=== PATIENT | male | born 1970 | race Caucasian/White ===

== ENCOUNTER 2021-04-22 05:02 | Inpatient (IN) ==
[2021-04-22] MEDS ORDERED: Acetaminophen 325 MG TABLET PO PRN (07:58)
[2021-04-22] MEDS ORDERED: Perflutren Lipid Microsphere 1.3 ML in 0.9 % Sodium Chloride 8.7 ML IVP PRN (07:58)
[2021-04-22] MEDS ORDERED: Naloxone 0.4 MG/ML INJ IVP PRN (07:58)
[2021-04-22] MEDS ORDERED: Vancomycin (wt based) 1,000 MG VIAL IVPB SCH (08:00)
[2021-04-22] MEDS ORDERED: Albuterol 2.5 MG/3 ML NEBULIZER IH PRN (08:04)
[2021-04-22] MEDS ORDERED: Azithromycin 500 MG in 0.9 % Sodium Chloride 250 ML IVPB SCH (09:00)
[2021-04-22] MEDS: Cefepime HCl 2,000 MG in Water for inj. (sterile) 10 ML IVP SCH ×2 (09:22→16:20)
[2021-04-22 09:27] LABS: Hematocrit 46.2 % (37.5-50.1); Hemoglobin 14.8 g/dL (12.9-16.9); Mean Corpuscular Hemoglobin 25.9 pg (28.0-33.3); Mean Corpuscular Volume 80.8 fL (83.0-100.0); Mean Platelet Volume 9.7 fL (9.4-12.4); Platelet Count 348 K/mcL (140-400); Red Blood Count 5.72 M/mcL (4.19-5.50); Red Cell Distribution Width 17.3 % (11.5-14.5); White Blood Count 27.2 K/mcL (4.3-11.1)
[2021-04-22 09:33] LABS: INR 1.3; Prothrombin Time 14.7 Seconds (9.4-12.1)
[2021-04-22 09:39] LABS: Alanine Aminotransferase 98 Units/L (7-52); Albumin 3.3 g/dL (3.5-5.7); Albumin/Globulin Ratio 0.9 (1.1-2.2); Alkaline Phosphatase 152 Units/L (34-104); Aspartate Amino Transferase 80 Units/L (13-39); BUN/Creatinine Ratio 24 (6-26); Bilirubin,Direct 1.2 mg/dL (0.0-0.2); Bilirubin,Indirect 1.2 mg/dL (0.0-1.0); Bilirubin,Total 2.4 mg/dL (0.3-1.0); Blood Urea Nitrogen 35 mg/dL (6-20); Calcium 8.7 mg/dL (8.6-10.3); Carbon Dioxide 21 mEq/L (23-29); Chloride 100 mEq/L (98-107); Globulin 3.5 g/dL (2.4-3.5); Glucose 123 mg/dL (70-105); Magnesium 1.6 mg/dL (1.6-2.6); Osmolality,Calculated 287 (280-300); Phosphorous 4.2 mg/dL (2.7-4.5); Sodium 134 mEq/L (136-145); Total Protein 6.8 g/dL (6.4-8.9); Troponin I 0.25 ng/mL (< 0.04); eGFR For African Americans > 60 (> 60); eGFR For Non-African Americans 52 (> 60)
[2021-04-22 10:08] LABS: Lymphocytes # 0.5 K/mcL (0.6-4.6); Monocytes # 1.6 K/mcL (0.0-1.3); Neutrophils # 24.5 K/mcL (1.6-8.9); Platelet Estimate Normal (Normal)
[2021-04-22 10:10] LABS: Bilirubin,Urine Negative (Negative); Blood,Urine Negative (Negative); Clarity,Urine Clear (Clear); Color,Urine Light-Yellow (Yellow); Glucose,Urine (UA) Normal (Normal); Ketones,Urine Negative (Negative); Leukocyte Esterase,Urine Negative (Negative); Nitrite,Urine Negative (Negative); Protein,Urine Negative (Neg-Trace); Specific Gravity,Urine 1.019 (1.010-1.025); Urobilinogen,Urine Normal (Normal)
[2021-04-22 10:13] LABS: Creatinine,Urine 29 mg/dL; Sodium, Urine 58.8 mEq/L
[2021-04-22 10:16] LABS: Amphetamine Screen,Urine Positive ng/mL (Cutoff=1000); Barbiturate Screen,Urine Negative ng/mL (Cutoff=200); Benzodiazepines Screen,Urine Negative ng/mL (Cutoff=200); Cannabinoid Screen,Urine Negative ng/mL (Cutoff = 50); Cocaine Screen,Urine Negative ng/mL (Cutoff= 300); Opiate Screen,Urine Negative ng/mL (Cutoff=300); Phencyclidine Screen,Urine Negative ng/mL (Cutoff=25)
[2021-04-22] MEDS: Vancomycin 1,250 MG/262.5 ML IV.SOLN IVPB SCH ×2 (10:21→21:12)
[2021-04-22] MEDS: Ipratropium/Albuterol Neb 3 ML IH SCH ×3 (11:39→20:34)
[2021-04-22 14:08] LABS: Procalcitonin 5.58 ng/mL (0.00-0.15)
[2021-04-22 15:28] LABS: Folate 11.6 ng/mL (3.0-16.0)
[2021-04-23] MEDS: Ipratropium/Albuterol Neb 3 ML IH SCH ×2 (00:09→03:36)
[2021-04-23] MEDS: Cefepime HCl 2,000 MG in Water for inj. (sterile) 10 ML IVP SCH ×3 (01:25→17:41)
[2021-04-23] MEDS ORDERED: Azithromycin 500 MG in 0.9 % Sodium Chloride 250 ML IVPB SCH (04:00)
[2021-04-23 05:44] LABS: Basophils % 0.2 %; Hematocrit 44.3 % (37.5-50.1); Hemoglobin 13.7 g/dL (12.9-16.9); Immature Granulocytes % 0.9 % (0-4); Lymphocytes # 1.2 K/mcL (0.6-4.6); Lymphocytes % 5.1 %; Mean Corpuscular HGB Conc 30.9 g/dL (31.6-35.5); Mean Corpuscular Hemoglobin 24.8 pg (28.0-33.3); Mean Corpuscular Volume 80.1 fL (83.0-100.0); Mean Platelet Volume 9.9 fL (9.4-12.4); Monocytes # 2.3 K/mcL (0.0-1.3); Monocytes % 9.8 %; Neutrophils # 19.9 K/mcL (1.6-8.9); Platelet Count 359 K/mcL (140-400); Red Blood Count 5.53 M/mcL (4.19-5.50); Red Cell Distribution Width 16.8 % (11.5-14.5); White Blood Count 23.7 K/mcL (4.3-11.1)
[2021-04-23 05:58] LABS: Alanine Aminotransferase 73 Units/L (7-52); Albumin/Globulin Ratio 0.9 (1.1-2.2); Alkaline Phosphatase 141 Units/L (34-104); Aspartate Amino Transferase 42 Units/L (13-39); BUN/Creatinine Ratio 23 (6-26); Bilirubin,Direct 0.5 mg/dL (0.0-0.2); Bilirubin,Indirect 0.7 mg/dL (0.0-1.0); Bilirubin,Total 1.2 mg/dL (0.3-1.0); Blood Urea Nitrogen 34 mg/dL (6-20); Calcium 8.7 mg/dL (8.6-10.3); Carbon Dioxide 22 mEq/L (23-29); Chloride 102 mEq/L (98-107); Globulin 3.5 g/dL (2.4-3.5); Glucose 147 mg/dL (70-105); Magnesium 1.9 mg/dL (1.6-2.6); Osmolality,Calculated 286 (280-300); Phosphorous 2.7 mg/dL (2.7-4.5); Potassium 4.5 mEq/L (3.5-5.1); Sodium 133 mEq/L (136-145); Total Protein 6.5 g/dL (6.4-8.9); eGFR For African Americans > 60 (> 60); eGFR For Non-African Americans 51 (> 60)
[2021-04-23] MEDS ORDERED: Albumin 25% 25gram/100mL 25 GM/100 ML IV.SOLN IVPB ONE (06:16)
[2021-04-23] MEDS ORDERED: 0.9 % Sodium Chloride 500 ML IVC ONE (06:21)
[2021-04-23] MEDS ORDERED: *HR* Heparin 5,000 UNIT/ML VIAL IVP ONE ×3 (06:22→09:14)
[2021-04-23] MEDS ORDERED: *HR* Heparin 5,000 UNIT/ML VIAL IVP PRN ×5 (06:22→17:54)
[2021-04-23] MEDS ORDERED: 0.9 % Sodium Chloride 500 ML ONE (06:25)
[2021-04-23] MEDS ORDERED: Amiodarone Premix 360 MG/200 ML BAG IVC ONE ×2 (06:30→09:11)
[2021-04-23] MEDS ORDERED: Amiodarone Premix 150 MG/100 ML BAG IVPB ONE (06:30)
[2021-04-23] MEDS ORDERED: Heparin 25,000UNIT/250ML 1/2NS 25,000 UNIT/250 ML IV.SOLN IVC SCH (06:30)
[2021-04-23 06:47] LABS: Mean Corpuscular HGB Conc 31.8 g/dL (31.6-35.5); Mean Corpuscular Hemoglobin 25.7 pg (28.0-33.3); Mean Corpuscular Volume 80.9 fL (83.0-100.0); Mean Platelet Volume 10.1 fL (9.4-12.4); Platelet Count 346 K/mcL (140-400); Red Blood Count 5.44 M/mcL (4.19-5.50); Red Cell Distribution Width 17.1 % (11.5-14.5)
[2021-04-23 06:54] LABS: Heparin anti-factor XA UFH < 0.04 IU/mL (0.30-0.70)
[2021-04-23 06:55] LABS: INR 1.4
[2021-04-23] MEDS ORDERED: Acetaminophen 325 MG TABLET PO PRN (07:45)
[2021-04-23] MEDS ORDERED: Albuterol 2.5 MG/3 ML NEBULIZER IH PRN (07:45)
[2021-04-23] MEDS ORDERED: Naloxone 0.4 MG/ML INJ IVP PRN (07:45)
[2021-04-23] MEDS ORDERED: Ipratropium/Albuterol Neb 3 ML IH SCH (08:00)
[2021-04-23] MEDS ORDERED: Heparin 25,000 UNIT/250 ML 25,000 UNIT/250 ML IV.SOLN IVC SCH (09:15)
[2021-04-23] MEDS ORDERED: *HR* LORazepam 2 MG/ML VIAL IVP ONE (09:37)
[2021-04-23] MEDS ORDERED: Vancomycin 1,250 MG/262.5 ML IV.SOLN IVPB SCH (10:00)
[2021-04-23] MEDS: Ipratropium/Albuterol Neb 3 ML IH PRN (10:09)
[2021-04-23] MEDS ORDERED: Amiodarone Premix 360 MG/200 ML BAG IVC SCH ×2 (12:31→15:13)
[2021-04-23] MEDS: Aspirin 81 MG TAB.CHEW PO SCH (13:56)
[2021-04-23] MEDS: Furosemide 20 MG/2 ML VIAL IVP SCH ×2 (13:56→21:12)
[2021-04-23] MEDS: Metoprolol XL (24 HR) Succ 25 MG TAB.ER.24H PO SCH (17:41)
[2021-04-24 01:02] LABS: Basophils % 0.2 %; Hematocrit 51.1 % (37.5-50.1); Hemoglobin 15.3 g/dL (12.9-16.9); Immature Granulocytes % 5.4 % (0-4); Lymphocytes # 0.6 K/mcL (0.6-4.6); Lymphocytes % 2.7 %; Mean Corpuscular HGB Conc 29.9 g/dL (31.6-35.5); Mean Corpuscular Hemoglobin 25.9 pg (28.0-33.3); Mean Corpuscular Volume 86.6 fL (83.0-100.0); Mean Platelet Volume 10.4 fL (9.4-12.4); Monocytes % 9.2 %; Neutrophils # 17.7 K/mcL (1.6-8.9); Nucleated Red Blood Cells 0.1 /100 WBC (0); Platelet Count 402 K/mcL (140-400); Red Cell Distribution Width 18.2 % (11.5-14.5); Segmented Neutrophils % 82.5 %; White Blood Count 21.4 K/mcL (4.3-11.1)
[2021-04-24] MEDS: Cefepime HCl 2,000 MG in Water for inj. (sterile) 10 ML IVP SCH ×3 (01:09→20:16)
[2021-04-24] MEDS: Heparin 25,000 UNIT/250 ML 25,000 UNIT/250 ML IV.SOLN IVC SCH ×2 (01:10→19:02)
[2021-04-24] MEDS: Azithromycin 500 MG in 0.9 % Sodium Chloride 250 ML IVPB SCH (05:00)
[2021-04-24] MEDS: *HR* Heparin 5,000 UNIT/ML VIAL IVP PRN ×2 (05:06→13:09)
[2021-04-24 05:25] LABS: Albumin 3.5 g/dL (3.5-5.7); Albumin/Globulin Ratio 1.1 (1.1-2.2); Bilirubin,Direct 1.7 mg/dL (0.0-0.2); Bilirubin,Indirect 1.4 mg/dL (0.0-1.0); Bilirubin,Total 3.1 mg/dL (0.3-1.0); Calcium 9.8 mg/dL (8.6-10.3); Globulin 3.3 g/dL (2.4-3.5); Magnesium 2.2 mg/dL (1.6-2.6); Phosphorous 5.9 mg/dL (2.7-4.5); Potassium 5.2 mEq/L (3.5-5.1); Total Protein 6.8 g/dL (6.4-8.9)
[2021-04-24] MEDS ORDERED: *HR* Dextrose 50 % in Water (Vial) 50 ML VIAL ONE (05:30)
[2021-04-24] MEDS ORDERED: D5% in Water 1,000 ML IVC ONE (05:34)
[2021-04-24] MEDS ORDERED: *HR* Dextrose 50 % in Water (Syg) 50 ML SYRINGE IVP PRN (05:50)
[2021-04-24] MEDS ORDERED: D5% in Water 1,000 ML IVC PRN (05:50)
[2021-04-24] MEDS ORDERED: Dextrose Gel 15 GM/37.5 ML TUBE PO PRN ×2 (05:50)
[2021-04-24] MEDS ORDERED: lisinopriL 5 MG TABLET PO SCH (09:30)
[2021-04-24] MEDS ORDERED: Furosemide 20 MG/2 ML VIAL IVP SCH (11:45)
[2021-04-24 12:33] LABS: Alanine Aminotransferase 2178 Units/L (7-52); Albumin/Globulin Ratio 1.1 (1.1-2.2); Alkaline Phosphatase 173 Units/L (34-104); Aspartate Amino Transferase > 3000 Units/L (13-39); Bilirubin,Direct 1.6 mg/dL (0.0-0.2); Bilirubin,Indirect 1.1 mg/dL (0.0-1.0); Bilirubin,Total 2.7 mg/dL (0.3-1.0); Globulin 2.8 g/dL (2.4-3.5); Total Protein 5.8 g/dL (6.4-8.9)
[2021-04-24 12:38] LABS: Hepatitis B Surface Antigen Nonreactive (Nonreactive)
[2021-04-24] MEDS: Aspirin 81 MG TAB.CHEW PO SCH (12:50)
[2021-04-24] MEDS: Metoprolol XL (24 HR) Succ 25 MG TAB.ER.24H PO SCH (12:50)
[2021-04-24 13:08] LABS: Hepatitis A Antibody IgM Nonreactive (Nonreactive)
[2021-04-24 14:19] LABS: Hepatitis B Core IgM Nonreactive (Nonreactive)
[2021-04-24 14:23] LABS: Hepatitis C Virus Antibody Reactive (Nonreactive)
[2021-04-24] MEDS: Lactulose Oral Soln 20 GM/30 ML UDC PO SCH ×2 (14:30→20:16)
[2021-04-24] MEDS ORDERED: *HR* LORazepam 2 MG/ML VIAL IVP ONE (15:01)
[2021-04-24 17:29] LABS: Alanine Aminotransferase 2167 Units/L (7-52); Albumin 2.9 g/dL (3.5-5.7); Alkaline Phosphatase 164 Units/L (34-104); Aspartate Amino Transferase > 3000 Units/L (13-39); Bilirubin,Direct 1.4 mg/dL (0.0-0.2); Bilirubin,Indirect 0.9 mg/dL (0.0-1.0); Bilirubin,Total 2.3 mg/dL (0.3-1.0); Globulin 2.9 g/dL (2.4-3.5); Total Protein 5.8 g/dL (6.4-8.9)
[2021-04-24] MEDS: Furosemide 20 MG/2 ML VIAL IVP SCH (19:46)
[2021-04-25] MEDS ORDERED: Melatonin 3 MG TABLET PO ONE (00:17)
[2021-04-25] MEDS: Azithromycin 500 MG in 0.9 % Sodium Chloride 250 ML IVPB SCH (03:31)
[2021-04-25 03:54] LABS: Albumin 2.9 g/dL (3.5-5.7); Bilirubin,Direct 1.2 mg/dL (0.0-0.2); Bilirubin,Indirect 1.1 mg/dL (0.0-1.0); Bilirubin,Total 2.3 mg/dL (0.3-1.0); Calcium 8.3 mg/dL (8.6-10.3); Globulin 2.9 g/dL (2.4-3.5); Potassium 4.3 mEq/L (3.5-5.1); Total Protein 5.8 g/dL (6.4-8.9)
[2021-04-25] MEDS: *HR* Heparin 5,000 UNIT/ML VIAL IVP PRN ×2 (04:06→14:04)
[2021-04-25] MEDS: Ipratropium/Albuterol Neb 3 ML IH PRN (05:25)
[2021-04-25] MEDS ORDERED: Albumin 25% 25gram/100mL 25 GM/100 ML IV.SOLN IVPB ONE (05:42)
[2021-04-25 06:52] LABS: INR 2.4; Prothrombin Time 26.5 Seconds (9.4-12.1)
[2021-04-25] MEDS ORDERED: Vancomycin 1,500 MG/265 ML IV.SOLN IVPB SCH (07:00)
[2021-04-25 07:09] LABS: Basophils # 0.1 K/mcL (0.0-0.2); Basophils % 0.9 %; Eosinophils % 0.1 %; Hematocrit 39.8 % (37.5-50.1); Immature Granulocytes % 6.3 % (0-4); Lymphocytes % 8.1 %; Mean Corpuscular HGB Conc 32.4 g/dL (31.6-35.5); Mean Corpuscular Hemoglobin 25.2 pg (28.0-33.3); Mean Corpuscular Volume 77.9 fL (83.0-100.0); Mean Platelet Volume 10.4 fL (9.4-12.4); Monocytes # 1.2 K/mcL (0.0-1.3); Monocytes % 7.7 %; Neutrophils # 11.8 K/mcL (1.6-8.9); Nucleated Red Blood Cells 0.8 /100 WBC (0); Platelet Count 332 K/mcL (140-400); Red Blood Count 5.11 M/mcL (4.19-5.50); Red Cell Distribution Width 16.2 % (11.5-14.5); Segmented Neutrophils % 76.9 %; White Blood Count 15.4 K/mcL (4.3-11.1)
[2021-04-25 07:10] LABS: Hemoglobin 12.9 g/dL (12.9-16.9); Lymphocytes # 1.3 K/mcL (0.6-4.6)
[2021-04-25 07:17] LABS: Platelet Estimate Normal (Normal)
[2021-04-25 07:28] LABS: Amylase 37 Units/L (29-103); Lipase 50 Units/L (11-82)
[2021-04-25] MEDS ORDERED: Ondansetron 4 MG/2 ML VIAL IVP PRN ×2 (07:48→15:47)
[2021-04-25] MEDS ORDERED: Morphine Sulfate 2 MG/ML SYRINGE IVP ONE (09:15)
[2021-04-25] MEDS: Cefepime HCl 2,000 MG in Water for inj. (sterile) 10 ML IVP SCH ×2 (09:35→20:15)
[2021-04-25] MEDS: Norepinephrine 4 MG/254 ML IV.SOLN IVC SCH ×2 (09:38→19:50)
[2021-04-25] MEDS: Heparin 25,000 UNIT/250 ML 25,000 UNIT/250 ML IV.SOLN IVC SCH (10:54)
[2021-04-25] MEDS: Aspirin 81 MG TAB.CHEW PO SCH (12:14)
[2021-04-25] MEDS: Metoprolol XL (24 HR) Succ 25 MG TAB.ER.24H PO SCH (12:14)
[2021-04-25] MEDS: Lactulose Oral Soln 20 GM/30 ML UDC PO SCH ×2 (12:14→20:15)
[2021-04-25 12:51] LABS: Creatinine,Urine 57 mg/dL; Sodium, Urine < 10.0 mEq/L
[2021-04-25] MEDS: Bumetanide 12 MG in 0.9 % Sodium Chloride 48 ML IVC SCH (14:01)
[2021-04-25] MEDS ORDERED: Menthol 1 EACH LOZENGE PO PRN ×2 (14:48→15:47)
[2021-04-25] MEDS ORDERED: *HR* Heparin 5,000 UNIT/ML VIAL IVP PRN ×2 (15:47)
[2021-04-25] MEDS ORDERED: D5% in Water 1,000 ML IVC PRN (15:47)
[2021-04-25] MEDS ORDERED: *HR* Dextrose 50 % in Water (Syg) 50 ML SYRINGE IVP PRN (15:47)
[2021-04-25] MEDS ORDERED: Acetaminophen 325 MG TABLET PO PRN (15:47)
[2021-04-25] MEDS ORDERED: Albuterol 2.5 MG/3 ML NEBULIZER IH PRN (15:47)
[2021-04-25] MEDS ORDERED: Heparin 25,000 UNIT/250 ML 25,000 UNIT/250 ML IV.SOLN IVC SCH (15:47)
[2021-04-25] MEDS ORDERED: Dextrose Gel 15 GM/37.5 ML TUBE PO PRN ×2 (15:47)
[2021-04-25] MEDS ORDERED: Naloxone 0.4 MG/ML INJ IVP PRN (15:47)
[2021-04-25] MEDS ORDERED: Ipratropium/Albuterol Neb 3 ML IH PRN (15:47)
[2021-04-25 18:26] LABS: Complement C3 57 mg/dL (87-200)
[2021-04-25 18:42] LABS: ANCA IFA Titer <1:20 (<1:20)
[2021-04-26] MEDS: Azithromycin 500 MG in 0.9 % Sodium Chloride 250 ML IVPB SCH (03:12)
[2021-04-26 08:15] LABS: Hematocrit 43.2 % (37.5-50.1); Hemoglobin 13.8 g/dL (12.9-16.9); Mean Corpuscular HGB Conc 31.9 g/dL (31.6-35.5); Mean Corpuscular Volume 78.4 fL (83.0-100.0); Mean Platelet Volume 10.4 fL (9.4-12.4); Platelet Count 291 K/mcL (140-400); Red Blood Count 5.51 M/mcL (4.19-5.50); Red Cell Distribution Width 17.4 % (11.5-14.5); White Blood Count 15.8 K/mcL (4.3-11.1)
[2021-04-26 08:17] LABS: ANCA IFA Pattern NONE DETECTED (None Detected); Serine Protease-3 Antibody 7 AU/mL (0-19)
[2021-04-26] MEDS: Cefepime HCl 2,000 MG in Water for inj. (sterile) 10 ML IVP SCH ×2 (08:24→19:59)
[2021-04-26] MEDS: Aspirin 81 MG TAB.CHEW PO SCH (08:24)
[2021-04-26] MEDS: Metoprolol XL (24 HR) Succ 25 MG TAB.ER.24H PO SCH (08:24)
[2021-04-26 08:36] LABS: Eosinophils # 0.2 K/mcL (0.0-0.6); Lymphocytes # 1.3 K/mcL (0.6-4.6); Monocytes # 0.6 K/mcL (0.0-1.3); Neutrophils # 13.6 K/mcL (1.6-8.9)
[2021-04-26 08:37] LABS: Anisocytosis 1+ (Not Present); Platelet Estimate Normal (Normal)
[2021-04-26] MEDS ORDERED: Furosemide 20 MG/2 ML VIAL IVP SCH (09:00)
[2021-04-26] MEDS: Bumetanide 12 MG in 0.9 % Sodium Chloride 48 ML IVC SCH (09:29)
[2021-04-26] MEDS: Lactulose Oral Soln 20 GM/30 ML UDC PO SCH ×2 (09:31→19:59)
[2021-04-26 11:26] LABS: Alanine Aminotransferase 1241 Units/L (7-52); Albumin/Globulin Ratio 0.9 (1.1-2.2); Alkaline Phosphatase 157 Units/L (34-104); Aspartate Amino Transferase 918 Units/L (13-39); BUN/Creatinine Ratio 26 (6-26); Bilirubin,Direct 1.2 mg/dL (0.0-0.2); Bilirubin,Indirect 1.5 mg/dL (0.0-1.0); Bilirubin,Total 2.7 mg/dL (0.3-1.0); Blood Urea Nitrogen 34 mg/dL (6-20); Calcium 8.2 mg/dL (8.6-10.3); Carbon Dioxide 36 mEq/L (23-29); Chloride 91 mEq/L (98-107); Globulin 3.4 g/dL (2.4-3.5); Glucose 137 mg/dL (70-105); Magnesium 1.4 mg/dL (1.6-2.6); Osmolality,Calculated 290 (280-300); Potassium 3.1 mEq/L (3.5-5.1); Sodium 135 mEq/L (136-145); Total Protein 6.4 g/dL (6.4-8.9); eGFR For African Americans > 60 (> 60); eGFR For Non-African Americans 58 (> 60)
[2021-04-26] MEDS: *HR* Heparin 5,000 UNIT/ML VIAL SQ SCH ×2 (13:01→23:35)
[2021-04-26] MEDS: Gabapentin 400 MG CAPSULE PO SCH ×2 (16:28→20:00)
[2021-04-26] MEDS: Bumetanide 1 MG/4 ML VIAL IVP SCH (16:28)
[2021-04-26] MEDS ORDERED: *HR* OxyCODONE/APAP 5/325 TABLET PO ONE (20:42)
[2021-04-27] MEDS: Azithromycin 500 MG in 0.9 % Sodium Chloride 250 ML IVPB SCH (03:43)
[2021-04-27 04:35] LABS: Basophils % 0.3 %; Eosinophils # 0.1 K/mcL (0.0-0.6); Eosinophils % 0.5 %; Hematocrit 45.9 % (37.5-50.1); Hemoglobin 14.3 g/dL (12.9-16.9); Immature Granulocytes % 6.7 % (0-4); Lymphocytes # 1.5 K/mcL (0.6-4.6); Mean Corpuscular HGB Conc 31.2 g/dL (31.6-35.5); Mean Corpuscular Hemoglobin 24.8 pg (28.0-33.3); Mean Corpuscular Volume 79.5 fL (83.0-100.0); Mean Platelet Volume 10.6 fL (9.4-12.4); Monocytes # 1.3 K/mcL (0.0-1.3); Monocytes % 9.6 %; Neutrophils # 10.1 K/mcL (1.6-8.9); Platelet Count 307 K/mcL (140-400); Red Blood Count 5.77 M/mcL (4.19-5.50); Red Cell Distribution Width 17.4 % (11.5-14.5); Segmented Neutrophils % 71.9 %
[2021-04-27 04:49] LABS: BUN/Creatinine Ratio 27 (6-26); Blood Urea Nitrogen 30 mg/dL (6-20); Calcium 8.4 mg/dL (8.6-10.3); Carbon Dioxide 34 mEq/L (23-29); Chloride 96 mEq/L (98-107); Glucose 106 mg/dL (70-105); Magnesium 1.5 mg/dL (1.6-2.6); Osmolality,Calculated 289 (280-300); Potassium 3.4 mEq/L (3.5-5.1); Sodium 136 mEq/L (136-145); eGFR For African Americans > 60 (> 60); eGFR For Non-African Americans > 60 (> 60)
[2021-04-27 05:10] LABS: Albumin 2.9 g/dL (3.5-5.7); Albumin/Globulin Ratio 0.9 (1.1-2.2); Bilirubin,Direct 0.8 mg/dL (0.0-0.2); Bilirubin,Total 1.8 mg/dL (0.3-1.0); Globulin 3.3 g/dL (2.4-3.5); Total Protein 6.2 g/dL (6.4-8.9)
[2021-04-27] MEDS: *HR* Heparin 5,000 UNIT/ML VIAL SQ SCH ×3 (05:14→21:23)
[2021-04-27 05:33] LABS: Platelet Estimate Normal (Normal)
[2021-04-27] MEDS: Cefepime HCl 2,000 MG in Water for inj. (sterile) 10 ML IVP SCH ×2 (08:05→21:21)
[2021-04-27] MEDS: Metoprolol XL (24 HR) Succ 25 MG TAB.ER.24H PO SCH (08:06)
[2021-04-27] MEDS: Aspirin 81 MG TAB.CHEW PO SCH (08:06)
[2021-04-27] MEDS: Lactulose Oral Soln 20 GM/30 ML UDC PO SCH ×2 (08:06→21:23)
[2021-04-27] MEDS: Bumetanide 1 MG/4 ML VIAL IVP SCH (08:06)
[2021-04-27] MEDS: Gabapentin 400 MG CAPSULE PO SCH ×3 (08:06→21:22)
[2021-04-27] MEDS ORDERED: Bumetanide 1 MG/4 ML VIAL IVP SCH (17:00)
[2021-04-28 01:08] LABS: Basophils % 0.2 %; Eosinophils # 0.1 K/mcL (0.0-0.6); Eosinophils % 0.4 %; Hematocrit 45.8 % (37.5-50.1); Hemoglobin 14.3 g/dL (12.9-16.9); Immature Granulocytes % 8.4 % (0-4); Lymphocytes # 1.8 K/mcL (0.6-4.6); Lymphocytes % 10.2 %; Mean Corpuscular HGB Conc 31.2 g/dL (31.6-35.5); Mean Corpuscular Hemoglobin 25.2 pg (28.0-33.3); Mean Corpuscular Volume 80.6 fL (83.0-100.0); Mean Platelet Volume 10.5 fL (9.4-12.4); Monocytes % 9.4 %; Neutrophils # 12.5 K/mcL (1.6-8.9); Nucleated Red Blood Cells 0.2 /100 WBC (0); Platelet Count 276 K/mcL (140-400); Red Blood Count 5.68 M/mcL (4.19-5.50); Red Cell Distribution Width 17.8 % (11.5-14.5); Segmented Neutrophils % 71.4 %; White Blood Count 17.5 K/mcL (4.3-11.1)
[2021-04-28 01:13] LABS: Monocytes # 1.7 K/mcL (0.0-1.3)
[2021-04-28 01:39] LABS: Platelet Estimate Normal (Normal)
[2021-04-28 01:42] LABS: Alanine Aminotransferase 826 Units/L (7-52); Albumin/Globulin Ratio 0.8 (1.1-2.2); Alkaline Phosphatase 175 Units/L (34-104); Aspartate Amino Transferase 441 Units/L (13-39); BUN/Creatinine Ratio 20 (6-26); Bilirubin,Direct 0.7 mg/dL (0.0-0.2); Bilirubin,Indirect 0.8 mg/dL (0.0-1.0); Bilirubin,Total 1.5 mg/dL (0.3-1.0); Blood Urea Nitrogen 25 mg/dL (6-20); Calcium 8.5 mg/dL (8.6-10.3); Carbon Dioxide 29 mEq/L (23-29); Chloride 95 mEq/L (98-107); Globulin 3.7 g/dL (2.4-3.5); Glucose 106 mg/dL (70-105); Magnesium 1.7 mg/dL (1.6-2.6); Osmolality,Calculated 281 (280-300); Potassium 3.8 mEq/L (3.5-5.1); Sodium 133 mEq/L (136-145); Total Protein 6.7 g/dL (6.4-8.9); Uric Acid 10.9 mg/dL (2.3-7.6); eGFR For African Americans > 60 (> 60); eGFR For Non-African Americans 60 (> 60)
[2021-04-28] MEDS ORDERED: Colchicine 0.6 MG TABLET PO ONE ×2 (01:46)
[2021-04-28] MEDS: Azithromycin 500 MG in 0.9 % Sodium Chloride 250 ML IVPB SCH (03:23)
[2021-04-28] MEDS ORDERED: Albumin 25% 25gram/100mL 25 GM/100 ML IV.SOLN IVPB ONE (04:22)
[2021-04-28] MEDS ORDERED: Albumin 25% 25gram/100mL 25 GM/100 ML IV.SOLN ONE (04:27)
[2021-04-28] MEDS ORDERED: 0.9 % Sodium Chloride 500 ML ONE (04:42)
[2021-04-28] MEDS ORDERED: 0.9 % Sodium Chloride 500 ML IVC ONE ×2 (05:00→12:58)
[2021-04-28] MEDS ORDERED: 0.9 % Sodium Chloride 500 ML IVC PRN (05:33)
[2021-04-28] MEDS: *HR* Heparin 5,000 UNIT/ML VIAL SQ SCH ×3 (06:31→19:59)
[2021-04-28 08:21] LABS: HCV Quant Interpretation DETECTED (Not Detected); HCV Quant Log 5.99 log IU/mL
[2021-04-28] MEDS: Gabapentin 400 MG CAPSULE PO SCH ×3 (08:25→19:58)
[2021-04-28] MEDS: Aspirin 81 MG TAB.CHEW PO SCH (08:25)
[2021-04-28] MEDS: Cefepime HCl 2,000 MG in Water for inj. (sterile) 10 ML IVP SCH (08:25)
[2021-04-28] MEDS: Metoprolol XL (24 HR) Succ 25 MG TAB.ER.24H PO SCH (08:25)
[2021-04-28] MEDS: Lactulose Oral Soln 20 GM/30 ML UDC PO SCH ×2 (08:26→19:59)
[2021-04-28] MEDS: Cefepime HCl 2,000 MG in Water for inj. (sterile) 20 ML IVP SCH ×2 (08:44→19:59)
[2021-04-28] MEDS ORDERED: predniSONE 20 MG TABLET PO SCH (09:45)
[2021-04-28] MEDS ORDERED: Perflutren Lipid Microsphere 1.3 ML in 0.9 % Sodium Chloride 8.7 ML IVP PRN (12:18)
[2021-04-28] MEDS ORDERED: Melatonin 3 MG TABLET PO PRN (20:36)
[2021-04-29 04:02] LABS: Basophils # 0.1 K/mcL (0.0-0.2); Basophils % 0.6 %; Hematocrit 41.3 % (37.5-50.1); Hemoglobin 13.2 g/dL (12.9-16.9); Lymphocytes % 10.8 %; Mean Corpuscular Hemoglobin 25.2 pg (28.0-33.3); Mean Platelet Volume 10.8 fL (9.4-12.4); Monocytes # 1.6 K/mcL (0.0-1.3); Monocytes % 9.4 %; Neutrophils # 12.5 K/mcL (1.6-8.9); Nucleated Red Blood Cells 0.1 /100 WBC (0); Platelet Count 250 K/mcL (140-400); Red Blood Count 5.23 M/mcL (4.19-5.50); Red Cell Distribution Width 17.6 % (11.5-14.5); Segmented Neutrophils % 73.2 %; White Blood Count 17.1 K/mcL (4.3-11.1)
[2021-04-29 04:07] LABS: Lymphocytes # 1.9 K/mcL (0.6-4.6)
[2021-04-29 04:08] LABS: Platelet Estimate Normal (Normal)
[2021-04-29 04:30] LABS: Albumin 3.4 g/dL (3.5-5.7); Albumin/Globulin Ratio 0.9 (1.1-2.2); Bilirubin,Indirect 1.1 mg/dL (0.0-1.0); Bilirubin,Total 2.1 mg/dL (0.3-1.0); Globulin 3.9 g/dL (2.4-3.5); Magnesium 2.2 mg/dL (1.6-2.6); Potassium 5.2 mEq/L (3.5-5.1); Total Protein 7.3 g/dL (6.4-8.9)
[2021-04-29] MEDS: Azithromycin 500 MG in 0.9 % Sodium Chloride 250 ML IVPB SCH (05:16)
[2021-04-29] MEDS: *HR* Heparin 5,000 UNIT/ML VIAL SQ SCH ×3 (05:16→19:54)
[2021-04-29] MEDS ORDERED: 0.9 % Sodium Chloride 250 ML ONE (06:10)
[2021-04-29] MEDS ORDERED: Calcium Gluconate 1gm/50mL 1 GM/50 ML BAG IVPB ONE (06:18)
[2021-04-29 06:24] LABS: ABG Base Excess -14 mEq/L (-2 to 3); ABG HCO3 12 mEq/L (21-27); ABG Oxygen Saturation 100 % (95-98); ABG PCO2 25 mmHg (35-45); ABG PH 7.26 pH Units (7.32-7.45); ABG PO2 258 mmHg (85-104); ABG TCO2 12 mEq/L (20-26)
[2021-04-29 06:34] LABS: Basophils % 0.2 %; Eosinophils % 0.1 %; Hematocrit 45.3 % (37.5-50.1); Hemoglobin 13.4 g/dL (12.9-16.9); Immature Granulocytes % 7.6 % (0-4); Lymphocytes # 3.6 K/mcL (0.6-4.6); Lymphocytes % 19.2 %; Mean Corpuscular HGB Conc 29.6 g/dL (31.6-35.5); Mean Corpuscular Hemoglobin 24.8 pg (28.0-33.3); Mean Corpuscular Volume 83.9 fL (83.0-100.0); Mean Platelet Volume 11.5 fL (9.4-12.4); Monocytes # 1.6 K/mcL (0.0-1.3); Monocytes % 8.4 %; Nucleated Red Blood Cells 0.1 /100 WBC (0); Platelet Count 221 K/mcL (140-400); Red Cell Distribution Width 17.8 % (11.5-14.5); Segmented Neutrophils % 64.5 %; White Blood Count 18.5 K/mcL (4.3-11.1)
[2021-04-29 06:35] LABS: Neutrophils # 11.9 K/mcL (1.6-8.9)
[2021-04-29 06:36] LABS: Platelet Estimate Normal (Normal)
[2021-04-29 06:39] LABS: VBG HCO3 17 mEq/L (21-27); VBG PCO2 47 mmHg (41-51); VBG PH 7.18 pH Units (7.32-7.42); VBG PO2 41 mmHg (25-50)
[2021-04-29] MEDS ORDERED: Sodium Bicarbonate 150 MEQ in D5% in Water 1,000 ML IVC SCH ×2 (06:45→23:15)
[2021-04-29 06:49] LABS: INR 1.5; Prothrombin Time 16.7 Seconds (9.4-12.1)
[2021-04-29 07:26] LABS: Albumin 3.4 g/dL (3.5-5.7); Albumin/Globulin Ratio 0.9 (1.1-2.2); Bilirubin,Indirect 1.1 mg/dL (0.0-1.0); Bilirubin,Total 2.1 mg/dL (0.3-1.0); Calcium 9.1 mg/dL (8.6-10.3); Globulin 3.6 g/dL (2.4-3.5); Magnesium 2.4 mg/dL (1.6-2.6); Phosphorous 5.1 mg/dL (2.7-4.5); Potassium 5.3 mEq/L (3.5-5.1); Troponin I 1.42 ng/mL (< 0.04)
[2021-04-29] MEDS: MethylPREDNISolone 40 MG/ML VIAL IVP SCH (08:28)
[2021-04-29] MEDS: Metoprolol XL (24 HR) Succ 25 MG TAB.ER.24H PO SCH (08:29)
[2021-04-29] MEDS: Aspirin 81 MG TAB.CHEW PO SCH (08:29)
[2021-04-29] MEDS: Gabapentin 400 MG CAPSULE PO SCH ×3 (08:29→19:55)
[2021-04-30] MEDS: *HR* Heparin 5,000 UNIT/ML VIAL SQ SCH ×3 (05:16→20:49)
[2021-04-30 05:50] LABS: VBG HCO3 26 mEq/L (21-27); VBG Ionized Calcium 1.08 mmol/L (1.15-1.35); VBG PCO2 31 mmHg (41-51); VBG PH 7.53 pH Units (7.32-7.42); VBG PO2 169 mmHg (25-50)
[2021-04-30 06:02] LABS: Basophils # 0.1 K/mcL (0.0-0.2); Basophils % 0.3 %; Hematocrit 39.4 % (37.5-50.1); Hemoglobin 12.8 g/dL (12.9-16.9); Immature Granulocytes % 4.3 % (0-4); Lymphocytes # 1.2 K/mcL (0.6-4.6); Lymphocytes % 6.5 %; Mean Corpuscular HGB Conc 32.5 g/dL (31.6-35.5); Mean Corpuscular Hemoglobin 25.5 pg (28.0-33.3); Mean Corpuscular Volume 78.5 fL (83.0-100.0); Mean Platelet Volume 11.2 fL (9.4-12.4); Monocytes # 1.5 K/mcL (0.0-1.3); Monocytes % 7.8 %; Neutrophils # 15.2 K/mcL (1.6-8.9); Nucleated Red Blood Cells 0.2 /100 WBC (0); Platelet Count 230 K/mcL (140-400); Red Blood Count 5.02 M/mcL (4.19-5.50); Red Cell Distribution Width 17.1 % (11.5-14.5); Segmented Neutrophils % 81.1 %; White Blood Count 18.7 K/mcL (4.3-11.1)
[2021-04-30 06:08] LABS: Alanine Aminotransferase 392 Units/L (7-52); Albumin 3.2 g/dL (3.5-5.7); Albumin/Globulin Ratio 0.9 (1.1-2.2); Alkaline Phosphatase 164 Units/L (34-104); Aspartate Amino Transferase 103 Units/L (13-39); BUN/Creatinine Ratio 37 (6-26); Bilirubin,Total 1.6 mg/dL (0.3-1.0); Blood Urea Nitrogen 55 mg/dL (6-20); Calcium 8.9 mg/dL (8.6-10.3); Carbon Dioxide 25 mEq/L (23-29); Chloride 94 mEq/L (98-107); Globulin 3.5 g/dL (2.4-3.5); Glucose 204 mg/dL (70-105); Osmolality,Calculated 287 (280-300); Phosphorous 3.4 mg/dL (2.7-4.5); Potassium 4.8 mEq/L (3.5-5.1); Sodium 128 mEq/L (136-145); Total Protein 6.7 g/dL (6.4-8.9); Troponin I 0.52 ng/mL (< 0.04); eGFR For African Americans > 60 (> 60); eGFR For Non-African Americans 50 (> 60)
[2021-04-30] MEDS: Gabapentin 400 MG CAPSULE PO SCH ×2 (08:53→14:59)
[2021-04-30] MEDS: MethylPREDNISolone 40 MG/ML VIAL IVP SCH (08:53)
[2021-04-30] MEDS: Metoprolol XL (24 HR) Succ 25 MG TAB.ER.24H PO SCH (08:53)
[2021-04-30] MEDS: Aspirin 81 MG TAB.CHEW PO SCH (08:54)
[2021-04-30 17:36] LABS: HCV Genotype by Sequencing 3A
[2021-04-30] MEDS ORDERED: Furosemide 20 MG/2 ML VIAL IVP ONE (17:52)
[2021-04-30] MEDS ORDERED: Naloxone 0.4 MG/ML INJ IVP PRN (20:11)
[2021-04-30] MEDS ORDERED: *HR* Dextrose 50 % in Water (Syg) 50 ML SYRINGE IVP PRN (20:11)
[2021-04-30] MEDS ORDERED: Albuterol 2.5 MG/3 ML NEBULIZER IH PRN (20:11)
[2021-04-30] MEDS ORDERED: Ondansetron 4 MG/2 ML VIAL IVP PRN (20:11)
[2021-04-30] MEDS ORDERED: Melatonin 3 MG TABLET PO PRN (20:11)
[2021-04-30] MEDS ORDERED: Acetaminophen 325 MG TABLET PO PRN (20:11)
[2021-04-30] MEDS ORDERED: D5% in Water 1,000 ML IVC PRN (20:11)
[2021-04-30] MEDS ORDERED: Ipratropium/Albuterol Neb 3 ML IH PRN (20:11)
[2021-04-30] MEDS ORDERED: Menthol 1 EACH LOZENGE PO PRN (20:11)
[2021-04-30] MEDS ORDERED: Dextrose Gel 15 GM/37.5 ML TUBE PO PRN ×2 (20:11)
[2021-04-30] MEDS ORDERED: Gabapentin 400 MG CAPSULE PO SCH (21:00)
[2021-05-01 00:39] LABS: Basophils # 0.1 K/mcL (0.0-0.2); Basophils % 0.3 %; Hematocrit 40.6 % (37.5-50.1); Hemoglobin 12.7 g/dL (12.9-16.9); Immature Granulocytes % 4.1 % (0-4); Lymphocytes # 0.6 K/mcL (0.6-4.6); Lymphocytes % 2.5 %; Mean Corpuscular HGB Conc 31.3 g/dL (31.6-35.5); Mean Corpuscular Hemoglobin 24.8 pg (28.0-33.3); Mean Corpuscular Volume 79.1 fL (83.0-100.0); Mean Platelet Volume 11.6 fL (9.4-12.4); Monocytes # 1.2 K/mcL (0.0-1.3); Monocytes % 5.4 %; Neutrophils # 19.1 K/mcL (1.6-8.9); Platelet Count 253 K/mcL (140-400); Red Blood Count 5.13 M/mcL (4.19-5.50); Red Cell Distribution Width 16.9 % (11.5-14.5); Segmented Neutrophils % 87.7 %; White Blood Count 21.8 K/mcL (4.3-11.1)
[2021-05-01 01:16] LABS: BUN/Creatinine Ratio 39 (6-26); Blood Urea Nitrogen 50 mg/dL (6-20); Carbon Dioxide 24 mEq/L (23-29); Chloride 92 mEq/L (98-107); Glucose 451 mg/dL (70-105); Osmolality,Calculated 295 (280-300); Potassium 5.3 mEq/L (3.5-5.1); Sodium 126 mEq/L (136-145); eGFR For African Americans > 60 (> 60); eGFR For Non-African Americans 59 (> 60)
[2021-05-01 04:32] VITALS: BP 115/96; PULSE 106; TEMP 98.4; O2SAT 99
[2021-05-01] MEDS: *HR* Heparin 5,000 UNIT/ML VIAL SQ SCH (05:00)
[2021-05-01 07:17] LABS: ANA IgG by ELISA NONE DETECTED (None Detected)
[2021-05-01] MEDS ORDERED: predniSONE 20 MG TABLET PO SCH ×2 (09:00)
[2021-05-01] MEDS ORDERED: Aspirin 81 MG TAB.CHEW PO SCH (09:00)
[2021-05-01] MEDS ORDERED: Metoprolol XL (24 HR) Succ 25 MG TAB.ER.24H PO SCH (09:00)
== END 2021-05-01 08:02 | disposition left against medical advice (07) | DRG 720 ==
LOC: ICNU → OBSVTOIN 07:03 → SUATTDRO 07:03 → 2ANU 04-23 00:31 → 2NNU 04-23 07:32 → 2ANU 04-24 22:39 → ICNU 04-25 06:33 → 2ANU 04-27 12:26 → 2NNU 04-28 05:21 → ICNU 04-29 06:32 → 2NENU 04-30 22:05
PROVIDERS: ADMIT Internal Medicine; ATTEND Family Medicine

== ENCOUNTER 2021-06-13 02:01 | Inpatient (IN) ==
[2021-06-13] MEDS ORDERED: Naloxone 0.4 MG/ML INJ IVP PRN (05:43)
[2021-06-13] MEDS ORDERED: Melatonin 3 MG TABLET PO PRN (05:43)
[2021-06-13] MEDS ORDERED: Saliva Stimulant 44.3ml BOTTLE PO PRN (06:28)
[2021-06-13] MEDS ORDERED: D5% in Water 1,000 ML IVC PRN (06:32)
[2021-06-13] MEDS ORDERED: *HR* LORazepam 0.5 MG TABLET PO PRN (06:32)
[2021-06-13] MEDS ORDERED: Dextrose Gel 15 GM/37.5 ML TUBE PO PRN ×2 (06:32)
[2021-06-13] MEDS ORDERED: Furosemide 40 MG/4 ML VIAL IVP ONE ×2 (06:32→08:00)
[2021-06-13] MEDS ORDERED: *HR* Heparin 5,000 UNIT/ML VIAL IVP ONE (06:38)
[2021-06-13] MEDS ORDERED: *HR* Heparin 5,000 UNIT/ML VIAL IVP PRN (06:38)
[2021-06-13] MEDS ORDERED: Albumin 25% 25gram/100mL 25 GM/100 ML IV.SOLN IVPB ONE (07:30)
[2021-06-13] MEDS: Chlorhexidine Rinse 15 ML MOUTHWASH MM SCH ×2 (07:38→19:53)
[2021-06-13] MEDS: Aspirin 81 MG TAB.CHEW PO SCH (07:38)
[2021-06-13] MEDS: Lactobacillus 1 EACH CAP.SPRINK PO SCH ×2 (07:38→19:53)
[2021-06-13] MEDS: Heparin 25,000UNIT/250ML 1/2NS 25,000 UNIT/250 ML IV.SOLN IVC SCH (07:38)
[2021-06-13] MEDS: Cholecalciferol (D-3) 1,000 UNIT (25MCG) TABLET PO SCH (07:38)
[2021-06-13] MEDS: Spironolactone 12.5 MG TABLET PO SCH (07:38)
[2021-06-13] MEDS: carvediloL 6.25 MG TABLET PO SCH ×2 (07:38→17:52)
[2021-06-13] MEDS: Multivit/Ca/Min/Fe/FA 1 TAB TABLET PO SCH (07:38)
[2021-06-13] MEDS: Ipratropium 1 PUFF INHALER IH SCH ×5 (07:42→23:54)
[2021-06-13 09:00] LABS: Basophils # 0.1 K/mcL (0.0-0.2); Basophils % 0.3 %; Hematocrit 42.6 % (37.5-50.1); Immature Granulocytes % 1.1 % (0-4); Lymphocytes # 0.9 K/mcL (0.6-4.6); Lymphocytes % 4.2 %; Mean Corpuscular HGB Conc 31.2 g/dL (31.6-35.5); Mean Corpuscular Hemoglobin 24.3 pg (28.0-33.3); Mean Corpuscular Volume 77.7 fL (83.0-100.0); Mean Platelet Volume 10.4 fL (9.4-12.4); Monocytes # 1.1 K/mcL (0.0-1.3); Monocytes % 5.1 %; Neutrophils # 19.6 K/mcL (1.6-8.9); Platelet Count 350 K/mcL (140-400); Red Blood Count 5.48 M/mcL (4.19-5.50); Red Cell Distribution Width 18.5 % (11.5-14.5); Segmented Neutrophils % 89.3 %
[2021-06-13 09:06] LABS: Hemoglobin 13.3 g/dL (12.9-16.9); White Blood Count 21.9 K/mcL (4.3-11.1)
[2021-06-13 09:16] LABS: Estimated Average Glucose 134 mg/dl; Hemoglobin A1C 6.3 %
[2021-06-13 09:22] LABS: Heparin anti-factor XA UFH 0.55 IU/mL (0.30-0.70); INR 2.4
[2021-06-13 09:24] LABS: Albumin 2.8 g/dL (3.5-5.7); Albumin/Globulin Ratio 0.8 (1.1-2.2); Bilirubin,Total 2.4 mg/dL (0.3-1.0); Calcium 8.6 mg/dL (8.6-10.3); Globulin 3.6 g/dL (2.4-3.5); Magnesium 1.8 mg/dL (1.6-2.6); Phosphorous 3.8 mg/dL (2.7-4.5); Potassium 4.1 mEq/L (3.5-5.1); Total Protein 6.4 g/dL (6.4-8.9)
[2021-06-13 09:29] LABS: Troponin I 0.09 ng/mL (< 0.04)
[2021-06-13] MEDS: Piperacillin/Tazobactam 3.375 GM in 0.9 % Sodium Chloride Mini Bag 100 ML IVPB SCH ×2 (09:42→18:19)
[2021-06-13 09:47] LABS: Activated Partial Thrombo Time 221.2 Seconds (26.0-36.0)
[2021-06-13 11:50] LABS: Thyroid Stimulating Hormone 5.415 mcIU/mL (0.340-5.600)
[2021-06-13] MEDS: Azithromycin 250 MG TABLET PO SCH (11:57)
[2021-06-13 12:24] LABS: Bilirubin,Urine Negative (Negative); Blood,Urine Negative (Negative); Clarity,Urine Clear (Clear); Color,Urine Light-Yellow (Yellow); Glucose,Urine (UA) Normal (Normal); Ketones,Urine Negative (Negative); Leukocyte Esterase,Urine Negative (Negative); Nitrite,Urine Negative (Negative); PH,Urine 5.5 pH Units (5.0-8.0); Protein,Urine Negative (Neg-Trace); Specific Gravity,Urine 1.008 (1.010-1.025); Urobilinogen,Urine Normal (Normal)
[2021-06-13 12:40] LABS: Heparin anti-factor XA UFH < 0.04 IU/mL (0.30-0.70); INR 1.8; Prothrombin Time 19.8 Seconds (9.4-12.1)
[2021-06-13 16:27] LABS: Adenovirus Not Detected (Not Detect); Coronavirus 229E Not Detected (Not Detect); Coronavirus HKU1 Not Detected (Not Detect); Coronavirus NL63 Not Detected (Not Detect); Coronavirus OC43 Not Detected (Not Detect)
[2021-06-13 16:29] LABS: Bordetella Pertussis Not Detected (Not Detect); Chlamydophila pneumoniae Not Detected (Not Detect); Human Metapneumovirus Not Detected (Not Detect); Human Rhinovirus/Enterovirus Not Detected (Not Detect); Influenza A Subtype 2009 H1 Not Detected (Not Detect); Influenza B Not Detected (Not Detect); Mycoplasma pneumoniae Not Detected (Not Detect); Parainfluenza Virus 1 Not Detected (Not Detect); Parainfluenza Virus 2 Not Detected (Not Detect); Parainfluenza Virus 3 Not Detected (Not Detect); Parainfluenza Virus 4 Not Detected (Not Detect); Respiratory Syncytial Virus Not Detected (Not Detect); SARS-CoV-2 DETECTED (Not Detect)
[2021-06-13 18:12] LABS: Uric Acid 14.8 mg/dL (2.3-7.6)
[2021-06-13 18:18] LABS: Sodium, Urine 37.8 mEq/L
[2021-06-13] MEDS: Furosemide 40 MG/4 ML VIAL IVP SCH (19:53)
[2021-06-13 20:31] LABS: RBC,Pleural Fluid < 2000 RBC/mcL
[2021-06-13 20:32] LABS: Appearance of Pleural Fl Hazy (Clear)
[2021-06-13 20:35] LABS: Total Protein 2.1 g/dL (6.4-8.9)
[2021-06-14 02:30] LABS: Total Protein,Pleural Fluid 2.3 g/dL
[2021-06-14] MEDS: Ipratropium 1 PUFF INHALER IH SCH ×6 (03:32→23:35)
[2021-06-14 04:43] LABS: Hematocrit 37.4 % (37.5-50.1); Hemoglobin 11.9 g/dL (12.9-16.9); Mean Corpuscular HGB Conc 31.8 g/dL (31.6-35.5); Mean Corpuscular Hemoglobin 24.5 pg (28.0-33.3); Mean Platelet Volume 10.2 fL (9.4-12.4); Platelet Count 355 K/mcL (140-400); Red Blood Count 4.86 M/mcL (4.19-5.50); Red Cell Distribution Width 17.9 % (11.5-14.5); White Blood Count 19.1 K/mcL (4.3-11.1)
[2021-06-14 05:02] LABS: Albumin 2.8 g/dL (3.5-5.7); Albumin/Globulin Ratio 0.8 (1.1-2.2); Bilirubin,Direct 0.9 mg/dL (0.0-0.2); Bilirubin,Indirect 1.3 mg/dL (0.0-1.0); Bilirubin,Total 2.2 mg/dL (0.3-1.0); Calcium 8.6 mg/dL (8.6-10.3); Globulin 3.5 g/dL (2.4-3.5); Magnesium 1.6 mg/dL (1.6-2.6); Phosphorous 3.4 mg/dL (2.7-4.5); Potassium 4.2 mEq/L (3.5-5.1); Total Protein 6.3 g/dL (6.4-8.9)
[2021-06-14] MEDS: Piperacillin/Tazobactam 3.375 GM in 0.9 % Sodium Chloride Mini Bag 100 ML IVPB SCH ×4 (06:18→21:31)
[2021-06-14] MEDS: Heparin 25,000UNIT/250ML 1/2NS 25,000 UNIT/250 ML IV.SOLN IVC SCH (07:43)
[2021-06-14] MEDS: Furosemide 40 MG/4 ML VIAL IVP SCH ×2 (08:22→21:31)
[2021-06-14] MEDS: Nitroglycerin 0.4 MG TAB.SUBL SL PRN ×4 (09:24→16:17)
[2021-06-14] MEDS: Multivit/Ca/Min/Fe/FA 1 TAB TABLET PO SCH (09:56)
[2021-06-14] MEDS: Spironolactone 12.5 MG TABLET PO SCH (09:56)
[2021-06-14] MEDS: Lactobacillus 1 EACH CAP.SPRINK PO SCH ×2 (09:56→21:30)
[2021-06-14] MEDS: Azithromycin 250 MG TABLET PO SCH (09:56)
[2021-06-14] MEDS: Chlorhexidine Rinse 15 ML MOUTHWASH MM SCH ×2 (09:57→21:30)
[2021-06-14] MEDS: Cholecalciferol (D-3) 1,000 UNIT (25MCG) TABLET PO SCH (09:57)
[2021-06-14] MEDS: Aspirin 81 MG TAB.CHEW PO SCH (09:57)
[2021-06-14] MEDS: carvediloL 6.25 MG TABLET PO SCH ×3 (09:59→17:33)
[2021-06-14] MEDS: *HR* Heparin 5,000 UNIT/ML VIAL IVP PRN (17:29)
[2021-06-14] MEDS ORDERED: *HR* Metoprolol 5 MG/5 ML VIAL IVP ONE (17:37)
[2021-06-14] MEDS ORDERED: *HR* LORazepam 2 MG/ML VIAL IVP ONE (23:50)
[2021-06-15] MEDS: Ipratropium 1 PUFF INHALER IH SCH ×6 (03:25→23:37)
[2021-06-15 04:52] LABS: Hematocrit 38.9 % (37.5-50.1); Hemoglobin 12.2 g/dL (12.9-16.9); Mean Corpuscular HGB Conc 31.4 g/dL (31.6-35.5); Mean Corpuscular Hemoglobin 24.2 pg (28.0-33.3); Mean Platelet Volume 10.3 fL (9.4-12.4); Platelet Count 329 K/mcL (140-400); Red Blood Count 5.05 M/mcL (4.19-5.50); Red Cell Distribution Width 18.1 % (11.5-14.5); White Blood Count 18.5 K/mcL (4.3-11.1)
[2021-06-15] MEDS: Piperacillin/Tazobactam 3.375 GM in 0.9 % Sodium Chloride Mini Bag 100 ML IVPB SCH ×2 (05:04→16:03)
[2021-06-15 05:05] LABS: Albumin 2.8 g/dL (3.5-5.7); Albumin/Globulin Ratio 0.8 (1.1-2.2); Bilirubin,Direct 1.8 mg/dL (0.0-0.2); Bilirubin,Indirect 1.4 mg/dL (0.0-1.0); Bilirubin,Total 3.2 mg/dL (0.3-1.0); Calcium 8.7 mg/dL (8.6-10.3); Globulin 3.6 g/dL (2.4-3.5); Magnesium 1.6 mg/dL (1.6-2.6); Phosphorous 3.3 mg/dL (2.7-4.5); Potassium 3.9 mEq/L (3.5-5.1); Total Protein 6.4 g/dL (6.4-8.9)
[2021-06-15] MEDS: Heparin 25,000UNIT/250ML 1/2NS 25,000 UNIT/250 ML IV.SOLN IVC SCH (08:43)
[2021-06-15] MEDS: Furosemide 40 MG/4 ML VIAL IVP SCH ×2 (08:43→16:04)
[2021-06-15] MEDS ORDERED: Lidocaine -MPF 2% 5 ML VIAL ONE (09:03)
[2021-06-15] MEDS ORDERED: Lidocaine -MPF 4% 5 ML AMPUL ONE (09:03)
[2021-06-15] MEDS ORDERED: Ondansetron 4 MG/2 ML VIAL ONE (09:03)
[2021-06-15] MEDS ORDERED: *HR* Succinylcholine 200 MG/10 ML VIAL IVP ONE (09:03)
[2021-06-15] MEDS ORDERED: *HR* Etomidate 40 MG/20 ML VIAL IVP ONE (09:04)
[2021-06-15] MEDS ORDERED: EPINEPHrine 1 MG/ML VIAL ONE (09:04)
[2021-06-15] MEDS ORDERED: Ketamine HCL *QUVA* 50mg (1mL) SYRINGE ONE (09:07)
[2021-06-15] MEDS ORDERED: *HR* FentaNYL (PF) 100 MCG/2 ML VIAL ONE (09:07)
[2021-06-15] MEDS: Vancomycin 1,500 MG/265 ML IV.SOLN IVPB SCH (09:49)
[2021-06-15] MEDS ORDERED: Albumin 25% 25gram/100mL 25 GM/100 ML IV.SOLN IVC SCH (10:15)
[2021-06-15] MEDS ORDERED: Norepinephrine 4 MG/254 ML in 0.9% Sodium Chloride IVC ONE (10:40)
[2021-06-15] MEDS ORDERED: *HR* Norepinephrine 4 MG/4 ML VIAL IVC ONE (10:40)
[2021-06-15] MEDS ORDERED: *HR* Atropine Sulfate 1 MG/10 ML SYRINGE IV ONE (10:40)
[2021-06-15] MEDS ORDERED: *HR* Midazolam HCl 2 MG/2 ML VIAL IVP ONE ×2 (10:51→13:43)
[2021-06-15] MEDS ORDERED: Naloxone 0.4 MG/ML INJ ONE (11:46)
[2021-06-15] MEDS ORDERED: *HR* Rocuronium Bromide 50 MG/5 ML VIAL ONE (12:07)
[2021-06-15] MEDS ORDERED: *HR* Midazolam HCl 2 MG/2 ML VIAL ONE (12:08)
[2021-06-15 12:09] LABS: ABG Base Excess -10 mEq/L (-2 to 3); ABG HCO3 21 mEq/L (21-27); ABG Oxygen Saturation 98 % (95-98); ABG PCO2 67 mmHg (35-45); ABG PO2 148 mmHg (85-104); ABG TCO2 23 mEq/L (20-26)
[2021-06-15] MEDS ORDERED: Perflutren Lipid Microsphere 1.3 ML in 0.9 % Sodium Chloride 8.7 ML IVP PRN (12:46)
[2021-06-15] MEDS ORDERED: *HR* Midazolam HCl 5 MG/5 ML VIAL IVP ONE (12:55)
[2021-06-15] MEDS: Chlorhexidine Rinse 15 ML MOUTHWASH MM SCH ×2 (13:08→19:34)
[2021-06-15] MEDS: Aspirin 81 MG TAB.CHEW PO SCH (13:08)
[2021-06-15] MEDS: carvediloL 6.25 MG TABLET PO SCH ×2 (13:08→16:04)
[2021-06-15] MEDS: Azithromycin 250 MG TABLET PO SCH (13:09)
[2021-06-15] MEDS: Multivit/Ca/Min/Fe/FA 1 TAB TABLET PO SCH (13:09)
[2021-06-15] MEDS: Cholecalciferol (D-3) 1,000 UNIT (25MCG) TABLET PO SCH (13:09)
[2021-06-15] MEDS: Lactobacillus 1 EACH CAP.SPRINK PO SCH ×2 (13:09→19:34)
[2021-06-15] MEDS ORDERED: 0.9 % Sodium Chloride 1,000 ML ONE (13:20)
[2021-06-15 14:10] LABS: ABG Base Excess -1 mEq/L (-2 to 3); ABG HCO3 25 mEq/L (21-27); ABG Oxygen Saturation 100 % (95-98); ABG PCO2 46 mmHg (35-45); ABG PH 7.34 pH Units (7.32-7.45); ABG PO2 424 mmHg (85-104); ABG TCO2 27 mEq/L (20-26); Blood Gas Modality VC; Blood Gas VT 450 cc
[2021-06-15] MEDS: Midazolam HCl 50 MG/100 ML IV.SOLN IVC SCH (14:23)
[2021-06-15] MEDS: FentaNYL (PF) 1,000 MCG/100 ML IV.SOLN IVC SCH (14:24)
[2021-06-15] MEDS ORDERED: Artificial Tears SOLN 15 ML BOTTLE BOTH EYES PRN (15:40)
[2021-06-15] MEDS: Pantoprazole 40 MG VIAL IVP SCH (16:06)
[2021-06-15 16:17] LABS: Basophils # 0.1 K/mcL (0.0-0.2); Basophils % 0.3 %; Hematocrit 38.2 % (37.5-50.1); Hemoglobin 11.6 g/dL (12.9-16.9); INR 1.9; Immature Granulocytes % 1.6 % (0-4); Lymphocytes # 0.3 K/mcL (0.6-4.6); Lymphocytes % 1.9 %; Mean Corpuscular HGB Conc 30.4 g/dL (31.6-35.5); Mean Corpuscular Hemoglobin 23.8 pg (28.0-33.3); Mean Corpuscular Volume 78.3 fL (83.0-100.0); Mean Platelet Volume 10.3 fL (9.4-12.4); Monocytes # 0.8 K/mcL (0.0-1.3); Monocytes % 4.5 %; Neutrophils # 16.3 K/mcL (1.6-8.9); Nucleated Red Blood Cells 0.2 /100 WBC (0); Platelet Count 288 K/mcL (140-400); Prothrombin Time 21.5 Seconds (9.4-12.1); Red Blood Count 4.88 M/mcL (4.19-5.50); Red Cell Distribution Width 18.1 % (11.5-14.5); Segmented Neutrophils % 91.7 %; White Blood Count 17.7 K/mcL (4.3-11.1)
[2021-06-15 16:30] LABS: Calcium 8.3 mg/dL (8.6-10.3); Potassium 4.1 mEq/L (3.5-5.1)
[2021-06-15 16:32] LABS: Magnesium 1.6 mg/dL (1.6-2.6)
[2021-06-15 16:38] LABS: Troponin I 0.1 ng/mL (< 0.04)
[2021-06-15] MEDS: Artificial Tears SOLN 15 ML BOTTLE BOTH EYES SCH (19:33)
[2021-06-15 22:32] LABS: Fluid Source for Cholesterol PLEURAL FLUID; Fluid Source for Triglycerides PLEURAL FLUID
[2021-06-16] MEDS: Artificial Tears SOLN 15 ML BOTTLE BOTH EYES SCH ×7 (00:08→23:21)
[2021-06-16] MEDS: Piperacillin/Tazobactam 3.375 GM in 0.9 % Sodium Chloride Mini Bag 100 ML IVPB SCH ×4 (00:09→23:22)
[2021-06-16] MEDS: Ipratropium 1 PUFF INHALER IH SCH ×5 (03:17→20:17)
[2021-06-16 03:18] LABS: VBG Ionized Calcium 1.05 mmol/L (1.15-1.35)
[2021-06-16 03:20] LABS: Hematocrit 36.4 % (37.5-50.1); Hemoglobin 11.2 g/dL (12.9-16.9); Mean Corpuscular HGB Conc 30.8 g/dL (31.6-35.5); Mean Corpuscular Hemoglobin 23.9 pg (28.0-33.3); Mean Corpuscular Volume 77.8 fL (83.0-100.0); Mean Platelet Volume 9.8 fL (9.4-12.4); Platelet Count 276 K/mcL (140-400); Red Blood Count 4.68 M/mcL (4.19-5.50); White Blood Count 15.4 K/mcL (4.3-11.1)
[2021-06-16 03:38] LABS: Albumin 2.6 g/dL (3.5-5.7); Albumin/Globulin Ratio 0.8 (1.1-2.2); Bilirubin,Indirect 1.2 mg/dL (0.0-1.0); Bilirubin,Total 3.2 mg/dL (0.3-1.0); Calcium 8.3 mg/dL (8.6-10.3); Globulin 3.1 g/dL (2.4-3.5); Magnesium 1.7 mg/dL (1.6-2.6); Phosphorous 5.2 mg/dL (2.7-4.5); Potassium 3.9 mEq/L (3.5-5.1); Total Protein 5.7 g/dL (6.4-8.9)
[2021-06-16 04:16] LABS: ABG Base Excess 2 mEq/L (-2 to 3); ABG HCO3 27 mEq/L (21-27); ABG Oxygen Saturation 97 % (95-98); ABG PCO2 43 mmHg (35-45); ABG PH 7.41 pH Units (7.32-7.45); ABG PO2 93 mmHg (85-104); ABG TCO2 29 mEq/L (20-26); Blood Gas Modality cpap; Blood Gas Pressure Support 5 cm H2O
[2021-06-16 07:06] LABS: Cholesterol,Body Fluid 28 mg/dL; Triglycerides,Body Fluid 26 mg/dL
[2021-06-16] MEDS: Albumin 25% 25gram/100mL 25 GM/100 ML IV.SOLN IVPB SCH ×2 (08:23→19:48)
[2021-06-16] MEDS: Aspirin 81 MG TAB.CHEW PO SCH (08:26)
[2021-06-16] MEDS: Chlorhexidine Rinse 15 ML MOUTHWASH MM SCH ×2 (08:26→19:48)
[2021-06-16] MEDS: Furosemide 40 MG/4 ML VIAL IVP SCH ×2 (08:26→16:30)
[2021-06-16] MEDS: carvediloL 6.25 MG TABLET PO SCH (08:26)
[2021-06-16] MEDS: Lactobacillus 1 EACH CAP.SPRINK PO SCH ×2 (08:27→19:44)
[2021-06-16] MEDS: Pantoprazole 40 MG VIAL IVP SCH (08:27)
[2021-06-16] MEDS: Cholecalciferol (D-3) 1,000 UNIT (25MCG) TABLET PO SCH (08:27)
[2021-06-16] MEDS: Multivit/Ca/Min/Fe/FA 1 TAB TABLET PO SCH (08:27)
[2021-06-16] MEDS: Vancomycin 1,500 MG/265 ML IV.SOLN IVPB SCH (08:29)
[2021-06-16] MEDS: Dexmedetomidine HCl 400 MCG/100 ML MLS IVC SCH ×2 (10:19→21:33)
[2021-06-16] MEDS: Azithromycin 500 MG in 0.9 % Sodium Chloride 250 ML IVPB SCH (13:23)
[2021-06-16] MEDS: Norepinephrine 4 MG/254 ML IV.SOLN IVC SCH (14:53)
[2021-06-16] MEDS ORDERED: Perflutren Lipid Microsphere 1.3 ML in 0.9 % Sodium Chloride 8.7 ML IVP PRN (18:40)
[2021-06-16] MEDS: Midazolam HCl 50 MG/100 ML IV.SOLN IVC SCH (19:45)
[2021-06-16] MEDS: FentaNYL (PF) 1,000 MCG/100 ML IV.SOLN IVC SCH (19:45)
[2021-06-16] MEDS: Heparin 25,000UNIT/250ML 1/2NS 25,000 UNIT/250 ML IV.SOLN IVC SCH (19:45)
[2021-06-17] MEDS: Ipratropium 1 PUFF INHALER IH SCH ×7 (00:08→22:55)
[2021-06-17] MEDS: Dexmedetomidine HCl 400 MCG/100 ML MLS IVC SCH ×3 (02:12→10:11)
[2021-06-17 03:44] LABS: ABG Base Excess 1 mEq/L (-2 to 3); ABG HCO3 24 mEq/L (21-27); ABG Oxygen Saturation 100 % (95-98); ABG PCO2 33 mmHg (35-45); ABG PH 7.48 pH Units (7.32-7.45); ABG PO2 206 mmHg (85-104); ABG TCO2 25 mEq/L (20-26); Blood Gas VT 450 cc
[2021-06-17] MEDS: Norepinephrine 4 MG/254 ML IV.SOLN IVC SCH ×4 (04:08→21:52)
[2021-06-17] MEDS: Artificial Tears SOLN 15 ML BOTTLE BOTH EYES SCH ×6 (04:11→23:01)
[2021-06-17] MEDS: Piperacillin/Tazobactam 3.375 GM in 0.9 % Sodium Chloride Mini Bag 100 ML IVPB SCH ×3 (05:35→23:00)
[2021-06-17 06:42] LABS: Basophils % 0.1 %; Hematocrit 38.5 % (37.5-50.1); Hemoglobin 11.8 g/dL (12.9-16.9); Immature Granulocytes % 0.8 % (0-4); Lymphocytes # 0.5 K/mcL (0.6-4.6); Lymphocytes % 2.4 %; Mean Corpuscular HGB Conc 30.6 g/dL (31.6-35.5); Mean Corpuscular Volume 78.3 fL (83.0-100.0); Mean Platelet Volume 10.8 fL (9.4-12.4); Monocytes # 1.1 K/mcL (0.0-1.3); Monocytes % 5.6 %; Neutrophils # 17.4 K/mcL (1.6-8.9); Nucleated Red Blood Cells 0.6 /100 WBC (0); Platelet Count 314 K/mcL (140-400); Red Blood Count 4.92 M/mcL (4.19-5.50); Red Cell Distribution Width 18.1 % (11.5-14.5); Segmented Neutrophils % 91.1 %; White Blood Count 19.1 K/mcL (4.3-11.1)
[2021-06-17 06:48] LABS: Calcium 8.9 mg/dL (8.6-10.3); Potassium 4.3 mEq/L (3.5-5.1)
[2021-06-17] MEDS: Albumin 25% 25gram/100mL 25 GM/100 ML IV.SOLN IVPB SCH ×2 (07:53→19:53)
[2021-06-17] MEDS: Chlorhexidine Rinse 15 ML MOUTHWASH MM SCH ×2 (07:54→19:53)
[2021-06-17] MEDS: Furosemide 40 MG/4 ML VIAL IVP SCH ×2 (07:54→09:26)
[2021-06-17] MEDS: Multivit/Ca/Min/Fe/FA 1 TAB TABLET PO SCH (07:54)
[2021-06-17] MEDS: Lactobacillus 1 EACH CAP.SPRINK PO SCH ×2 (07:54→19:53)
[2021-06-17] MEDS: Pantoprazole 40 MG VIAL IVP SCH (07:54)
[2021-06-17] MEDS: Cholecalciferol (D-3) 1,000 UNIT (25MCG) TABLET PO SCH (07:54)
[2021-06-17] MEDS: Aspirin 81 MG TAB.CHEW PO SCH (07:54)
[2021-06-17] MEDS: Heparin 25,000UNIT/250ML 1/2NS 25,000 UNIT/250 ML IV.SOLN IVC SCH (07:55)
[2021-06-17] MEDS: FentaNYL (PF) 1,000 MCG/100 ML IV.SOLN IVC SCH ×3 (07:55→23:02)
[2021-06-17] MEDS: Midazolam HCl 50 MG/100 ML IV.SOLN IVC SCH ×2 (09:25→18:10)
[2021-06-17] MEDS ORDERED: EPINEPHrine 1 MG/ML VIAL IV ONE (10:21)
[2021-06-17] MEDS: Vancomycin 2,000 MG/520 ML IV.SOLN IVPB SCH (10:40)
[2021-06-17] MEDS: Albumin Human 5% 12.5 GM/250 ML IV.SOLN IVC SCH ×2 (12:08→14:45)
[2021-06-17] MEDS: Azithromycin 500 MG in 0.9 % Sodium Chloride 250 ML IVPB SCH (12:09)
[2021-06-17] MEDS: *HR* Dextrose 50 % in Water (Syg) 50 ML SYRINGE IVP PRN ×2 (12:10→16:53)
[2021-06-17 13:28] LABS: ABG Base Excess -13 mEq/L (-2 to 3); ABG HCO3 9 mEq/L (21-27); ABG Oxygen Saturation 99 % (95-98); ABG PCO2 13 mmHg (35-45); ABG PH 7.41 pH Units (7.32-7.45); ABG PO2 123 mmHg (85-104); ABG TCO2 9 mEq/L (20-26)
[2021-06-17 15:05] LABS: VBG Ionized Calcium 0.98 mmol/L (1.15-1.35)
[2021-06-17 15:23] LABS: Albumin 3.3 g/dL (3.5-5.7); Albumin/Globulin Ratio 1.2 (1.1-2.2); Bilirubin,Direct 2.2 mg/dL (0.0-0.2); Bilirubin,Indirect 1.2 mg/dL (0.0-1.0); Bilirubin,Total 3.4 mg/dL (0.3-1.0); Calcium 8.8 mg/dL (8.6-10.3); Globulin 2.8 g/dL (2.4-3.5); Magnesium 2.1 mg/dL (1.6-2.6); Phosphorous 7.6 mg/dL (2.7-4.5); Potassium 4.8 mEq/L (3.5-5.1); Total Protein 6.1 g/dL (6.4-8.9); Troponin I 0.05 ng/mL (< 0.04)
[2021-06-17] MEDS: Calcium Gluconate 1gm/50mL 1 GM/50 ML BAG IVPB SCH ×2 (15:58→16:31)
[2021-06-17 16:30] LABS: ABG Base Excess -14 mEq/L (-2 to 3); ABG HCO3 11 mEq/L (21-27); ABG Oxygen Saturation 99 % (95-98); ABG PCO2 25 mmHg (35-45); ABG PH 7.26 pH Units (7.32-7.45); ABG PO2 152 mmHg (85-104); ABG TCO2 12 mEq/L (20-26); Blood Gas Modality ASSIST CONTROL; Blood Gas VT 450 cc
[2021-06-17] MEDS ORDERED: Sodium Bicarbonate 150 MEQ in D5% in Water 1,000 ML IVC SCH (16:30)
[2021-06-17 20:44] LABS: Basophils % 0.4 %; Immature Granulocytes % 2.6 % (0-4)
[2021-06-17 20:45] LABS: Basophils # 0.1 K/mcL (0.0-0.2); Hematocrit 37.5 % (37.5-50.1); Hemoglobin 11.2 g/dL (12.9-16.9); Lymphocytes % 2.5 %; Mean Corpuscular HGB Conc 29.9 g/dL (31.6-35.5); Mean Corpuscular Hemoglobin 24.5 pg (28.0-33.3); Mean Corpuscular Volume 81.9 fL (83.0-100.0); Mean Platelet Volume 10.5 fL (9.4-12.4); Monocytes # 1.2 K/mcL (0.0-1.3); Monocytes % 6.8 %; Neutrophils # 15.5 K/mcL (1.6-8.9); Nucleated Red Blood Cells 0.9 /100 WBC (0); Platelet Count 226 K/mcL (140-400); Red Blood Count 4.58 M/mcL (4.19-5.50); Red Cell Distribution Width 18.5 % (11.5-14.5); Segmented Neutrophils % 87.7 %; White Blood Count 17.7 K/mcL (4.3-11.1)
[2021-06-17 20:46] LABS: Lymphocytes # 0.4 K/mcL (0.6-4.6)
[2021-06-17 21:09] LABS: Calcium 8.8 mg/dL (8.6-10.3); Potassium 4.5 mEq/L (3.5-5.1); Troponin I 0.06 ng/mL (< 0.04)
[2021-06-18] MEDS: Heparin 25,000UNIT/250ML 1/2NS 25,000 UNIT/250 ML IV.SOLN IVC SCH (02:25)
[2021-06-18] MEDS: Artificial Tears SOLN 15 ML BOTTLE BOTH EYES SCH ×5 (03:29→19:23)
[2021-06-18 03:37] LABS: Basophils % 0.3 %; Hematocrit 36.1 % (37.5-50.1); Hemoglobin 11.1 g/dL (12.9-16.9); Immature Granulocytes % 2.4 % (0-4); Lymphocytes # 0.5 K/mcL (0.6-4.6); Lymphocytes % 3.1 %; Mean Corpuscular HGB Conc 30.7 g/dL (31.6-35.5); Mean Corpuscular Hemoglobin 24.2 pg (28.0-33.3); Mean Corpuscular Volume 78.6 fL (83.0-100.0); Mean Platelet Volume 10.8 fL (9.4-12.4); Monocytes # 1.1 K/mcL (0.0-1.3); Monocytes % 7.1 %; Neutrophils # 13.1 K/mcL (1.6-8.9); Nucleated Red Blood Cells 1.5 /100 WBC (0); Platelet Count 226 K/mcL (140-400); Red Blood Count 4.59 M/mcL (4.19-5.50); Red Cell Distribution Width 18.2 % (11.5-14.5); Segmented Neutrophils % 87.1 %; White Blood Count 15.1 K/mcL (4.3-11.1)
[2021-06-18 03:44] LABS: VBG Ionized Calcium 1.02 mmol/L (1.15-1.35)
[2021-06-18] MEDS: Ipratropium 1 PUFF INHALER IH SCH ×6 (03:47→23:52)
[2021-06-18] MEDS ORDERED: Sodium Bicarbonate 150 MEQ in Water for inj. (sterile) 1,000 ML IVC SCH (04:00)
[2021-06-18 04:06] LABS: Albumin 3.5 g/dL (3.5-5.7); Albumin/Globulin Ratio 1.3 (1.1-2.2); Bilirubin,Direct 2.6 mg/dL (0.0-0.2); Bilirubin,Indirect 1.3 mg/dL (0.0-1.0); Bilirubin,Total 3.9 mg/dL (0.3-1.0); Calcium 8.6 mg/dL (8.6-10.3); Globulin 2.6 g/dL (2.4-3.5); Phosphorous 6.1 mg/dL (2.7-4.5); Potassium 4.2 mEq/L (3.5-5.1); Total Protein 6.1 g/dL (6.4-8.9)
[2021-06-18] MEDS: Norepinephrine 4 MG/254 ML IV.SOLN IVC SCH (04:19)
[2021-06-18 04:20] LABS: ABG Base Excess 2 mEq/L (-2 to 3); ABG HCO3 26 mEq/L (21-27); ABG Oxygen Saturation 99 % (95-98); ABG PCO2 38 mmHg (35-45); ABG PH 7.44 pH Units (7.32-7.45); ABG PO2 144 mmHg (85-104); ABG TCO2 27 mEq/L (20-26); Blood Gas VT 450 cc
[2021-06-18] MEDS: Midazolam HCl 50 MG/100 ML IV.SOLN IVC SCH ×2 (05:02→16:30)
[2021-06-18] MEDS: Piperacillin/Tazobactam 3.375 GM in 0.9 % Sodium Chloride Mini Bag 100 ML IVPB SCH ×3 (05:13→21:49)
[2021-06-18] MEDS ORDERED: Calcium Gluconate 1gm/50mL 1 GM/50 ML BAG IVPB PRN (05:19)
[2021-06-18] MEDS: FentaNYL (PF) 1,000 MCG/100 ML IV.SOLN IVC SCH ×3 (05:24→21:00)
[2021-06-18] MEDS: Chlorhexidine Rinse 15 ML MOUTHWASH MM SCH ×2 (07:51→19:23)
[2021-06-18] MEDS: Aspirin 81 MG TAB.CHEW PO SCH (07:52)
[2021-06-18] MEDS: Cholecalciferol (D-3) 1,000 UNIT (25MCG) TABLET PO SCH (07:52)
[2021-06-18] MEDS: Pantoprazole 40 MG VIAL IVP SCH (07:52)
[2021-06-18] MEDS: Multivit/Ca/Min/Fe/FA 1 TAB TABLET PO SCH (07:52)
[2021-06-18] MEDS: Lactobacillus 1 EACH CAP.SPRINK PO SCH ×2 (07:52→19:23)
[2021-06-18] MEDS: Albumin 25% 25gram/100mL 25 GM/100 ML IV.SOLN IVPB SCH ×2 (07:53→19:23)
[2021-06-18] MEDS: Vancomycin 2,000 MG/520 ML IV.SOLN IVPB SCH (08:50)
[2021-06-18 12:37] LABS: VBG Ionized Calcium 1.07 mmol/L (1.15-1.35)
[2021-06-18 12:41] LABS: Calcium 8.5 mg/dL (8.6-10.3); Magnesium 1.9 mg/dL (1.6-2.6); Phosphorous 5.7 mg/dL (2.7-4.5); Potassium 3.9 mEq/L (3.5-5.1)
[2021-06-18 12:42] LABS: Troponin I 0.08 ng/mL (< 0.04)
[2021-06-19] MEDS: Artificial Tears SOLN 15 ML BOTTLE BOTH EYES SCH ×6 (01:09→20:15)
[2021-06-19] MEDS: Midazolam HCl 50 MG/100 ML IV.SOLN IVC SCH (02:44)
[2021-06-19] MEDS: Ipratropium 1 PUFF INHALER IH SCH ×6 (03:05→22:51)
[2021-06-19 03:52] LABS: ABG Base Excess 2 mEq/L (-2 to 3); ABG HCO3 27 mEq/L (21-27); ABG Oxygen Saturation 96 % (95-98); ABG PCO2 45 mmHg (35-45); ABG PH 7.39 pH Units (7.32-7.45); ABG PO2 84 mmHg (85-104); ABG TCO2 28 mEq/L (20-26); Blood Gas VT 450 cc
[2021-06-19 04:04] LABS: Basophils % 0.2 %; Hematocrit 34.6 % (37.5-50.1); Hemoglobin 10.5 g/dL (12.9-16.9); Immature Granulocytes % 1.3 % (0-4); Lymphocytes # 0.3 K/mcL (0.6-4.6); Lymphocytes % 1.8 %; Mean Corpuscular HGB Conc 30.3 g/dL (31.6-35.5); Mean Corpuscular Hemoglobin 23.8 pg (28.0-33.3); Mean Corpuscular Volume 78.5 fL (83.0-100.0); Mean Platelet Volume 10.6 fL (9.4-12.4); Monocytes # 0.9 K/mcL (0.0-1.3); Monocytes % 5.5 %; Neutrophils # 14.3 K/mcL (1.6-8.9); Nucleated Red Blood Cells 0.9 /100 WBC (0); Platelet Count 184 K/mcL (140-400); Red Blood Count 4.41 M/mcL (4.19-5.50); Segmented Neutrophils % 91.2 %; White Blood Count 15.7 K/mcL (4.3-11.1)
[2021-06-19 04:25] LABS: Albumin 3.4 g/dL (3.5-5.7); Albumin/Globulin Ratio 1.3 (1.1-2.2); Bilirubin,Direct 1.5 mg/dL (0.0-0.2); Bilirubin,Total 2.5 mg/dL (0.3-1.0); Calcium 8.9 mg/dL (8.6-10.3); Globulin 2.6 g/dL (2.4-3.5); Magnesium 2.1 mg/dL (1.6-2.6); Phosphorous 5.7 mg/dL (2.7-4.5); Potassium 3.9 mEq/L (3.5-5.1)
[2021-06-19] MEDS: FentaNYL (PF) 1,000 MCG/100 ML IV.SOLN IVC SCH (05:10)
[2021-06-19] MEDS: Heparin 25,000UNIT/250ML 1/2NS 25,000 UNIT/250 ML IV.SOLN IVC SCH ×2 (05:42→09:44)
[2021-06-19] MEDS: Piperacillin/Tazobactam 3.375 GM in 0.9 % Sodium Chloride Mini Bag 100 ML IVPB SCH ×3 (05:42→21:39)
[2021-06-19] MEDS: Pantoprazole 40 MG VIAL IVP SCH (07:41)
[2021-06-19] MEDS: Chlorhexidine Rinse 15 ML MOUTHWASH MM SCH ×2 (07:42→19:52)
[2021-06-19] MEDS: Cholecalciferol (D-3) 1,000 UNIT (25MCG) TABLET PO SCH (07:42)
[2021-06-19] MEDS: Albumin 25% 25gram/100mL 25 GM/100 ML IV.SOLN IVPB SCH ×2 (07:42→19:51)
[2021-06-19] MEDS: Lactobacillus 1 EACH CAP.SPRINK PO SCH ×2 (07:42→19:52)
[2021-06-19] MEDS: Multivit/Ca/Min/Fe/FA 1 TAB TABLET PO SCH (07:42)
[2021-06-19] MEDS: Aspirin 81 MG TAB.CHEW PO SCH (07:42)
[2021-06-19] MEDS: *HR* Heparin 5,000 UNIT/ML VIAL IVP PRN (09:48)
[2021-06-19] MEDS ORDERED: Furosemide 40 MG/4 ML VIAL IVP ONE (11:26)
[2021-06-20] MEDS: Artificial Tears SOLN 15 ML BOTTLE BOTH EYES SCH ×7 (00:32→23:20)
[2021-06-20] MEDS: Ipratropium 1 PUFF INHALER IH SCH ×6 (03:16→23:53)
[2021-06-20 03:58] LABS: Basophils # 0.1 K/mcL (0.0-0.2); Basophils % 0.6 %; Hematocrit 40.1 % (37.5-50.1); Immature Granulocytes % 3.8 % (0-4); Lymphocytes # 0.3 K/mcL (0.6-4.6); Lymphocytes % 1.9 %; Mean Corpuscular HGB Conc 29.9 g/dL (31.6-35.5); Mean Corpuscular Hemoglobin 23.5 pg (28.0-33.3); Mean Corpuscular Volume 78.5 fL (83.0-100.0); Mean Platelet Volume 10.5 fL (9.4-12.4); Monocytes # 0.7 K/mcL (0.0-1.3); Monocytes % 4.2 %; Neutrophils # 15.5 K/mcL (1.6-8.9); Nucleated Red Blood Cells 0.3 /100 WBC (0); Platelet Count 191 K/mcL (140-400); Red Blood Count 5.11 M/mcL (4.19-5.50); Red Cell Distribution Width 18.7 % (11.5-14.5); Segmented Neutrophils % 89.5 %; White Blood Count 17.3 K/mcL (4.3-11.1)
[2021-06-20 04:08] LABS: ABG Base Excess 3 mEq/L (-2 to 3); ABG HCO3 29 mEq/L (21-27); ABG Oxygen Saturation 95 % (95-98); ABG PCO2 51 mmHg (35-45); ABG PH 7.36 pH Units (7.32-7.45); ABG PO2 77 mmHg (85-104); ABG TCO2 31 mEq/L (20-26); Blood Gas VT 450 cc
[2021-06-20 04:15] LABS: VBG Ionized Calcium 1.15 mmol/L (1.15-1.35)
[2021-06-20 04:19] LABS: Albumin 3.6 g/dL (3.5-5.7); Albumin/Globulin Ratio 1.3 (1.1-2.2); Bilirubin,Direct 1.5 mg/dL (0.0-0.2); Bilirubin,Indirect 0.9 mg/dL (0.0-1.0); Bilirubin,Total 2.4 mg/dL (0.3-1.0); Calcium 9.2 mg/dL (8.6-10.3); Globulin 2.8 g/dL (2.4-3.5); Magnesium 2.3 mg/dL (1.6-2.6); Phosphorous 5.2 mg/dL (2.7-4.5); Potassium 3.9 mEq/L (3.5-5.1); Total Protein 6.4 g/dL (6.4-8.9)
[2021-06-20] MEDS: Piperacillin/Tazobactam 3.375 GM in 0.9 % Sodium Chloride Mini Bag 100 ML IVPB SCH ×3 (05:33→22:11)
[2021-06-20] MEDS: Heparin 25,000UNIT/250ML 1/2NS 25,000 UNIT/250 ML IV.SOLN IVC SCH (05:57)
[2021-06-20] MEDS ORDERED: Potassium Chloride Elixir 20 MEQ/15 ML UDC GTUBE ONE (08:07)
[2021-06-20] MEDS: Lactobacillus 1 EACH CAP.SPRINK PO SCH ×2 (09:41→20:07)
[2021-06-20] MEDS: Chlorhexidine Rinse 15 ML MOUTHWASH MM SCH ×2 (09:42→20:09)
[2021-06-20] MEDS: Pantoprazole 40 MG VIAL IVP SCH (09:42)
[2021-06-20] MEDS: Aspirin 81 MG TAB.CHEW PO SCH (09:42)
[2021-06-20] MEDS: Albumin 25% 25gram/100mL 25 GM/100 ML IV.SOLN IVPB SCH ×2 (09:45→20:08)
[2021-06-20] MEDS: Multivit/Ca/Min/Fe/FA 1 TAB TABLET PO SCH (09:46)
[2021-06-20] MEDS: Cholecalciferol (D-3) 1,000 UNIT (25MCG) TABLET PO SCH (09:46)
[2021-06-20] MEDS ORDERED: *HR* LORazepam 2 MG/ML VIAL IVP PRN (15:55)
[2021-06-20] MEDS: Norepinephrine 4 MG/254 ML IV.SOLN IVC SCH (20:09)
[2021-06-20] MEDS: Dexmedetomidine HCl 400 MCG/100 ML MLS IVC SCH (20:09)
[2021-06-21] MEDS: Heparin 25,000UNIT/250ML 1/2NS 25,000 UNIT/250 ML IV.SOLN IVC SCH ×2 (00:18→17:14)
[2021-06-21] MEDS: Artificial Tears SOLN 15 ML BOTTLE BOTH EYES SCH ×3 (03:10→12:18)
[2021-06-21] MEDS ORDERED: *HR* Metoprolol 5 MG/5 ML VIAL IVP ONE (03:41)
[2021-06-21] MEDS: Morphine Sulfate 2 MG/ML SYRINGE IVP PRN ×2 (03:52→09:24)
[2021-06-21 04:00] LABS: VBG Ionized Calcium 1.17 mmol/L (1.15-1.35)
[2021-06-21 04:04] LABS: Basophils # 0.2 K/mcL (0.0-0.2); Basophils % 0.7 %; Hematocrit 39.8 % (37.5-50.1); Hemoglobin 11.9 g/dL (12.9-16.9); Immature Granulocytes % 4.1 % (0-4); Lymphocytes # 0.3 K/mcL (0.6-4.6); Lymphocytes % 1.2 %; Mean Corpuscular HGB Conc 29.9 g/dL (31.6-35.5); Mean Corpuscular Hemoglobin 23.4 pg (28.0-33.3); Mean Corpuscular Volume 78.3 fL (83.0-100.0); Mean Platelet Volume 11.3 fL (9.4-12.4); Nucleated Red Blood Cells 1.2 /100 WBC (0); Platelet Count 242 K/mcL (140-400); Red Blood Count 5.08 M/mcL (4.19-5.50); Red Cell Distribution Width 19.1 % (11.5-14.5)
[2021-06-21 04:11] LABS: Albumin/Globulin Ratio 1.4 (1.1-2.2); Bilirubin,Direct 1.6 mg/dL (0.0-0.2); Bilirubin,Indirect 1.2 mg/dL (0.0-1.0); Bilirubin,Total 2.8 mg/dL (0.3-1.0); Globulin 2.8 g/dL (2.4-3.5); Magnesium 2.5 mg/dL (1.6-2.6); Potassium 4.4 mEq/L (3.5-5.1); Total Protein 6.8 g/dL (6.4-8.9)
[2021-06-21 04:21] LABS: Monocytes # 1.3 K/mcL (0.0-1.3); Neutrophils # 22.3 K/mcL (1.6-8.9)
[2021-06-21] MEDS: Ipratropium 1 PUFF INHALER IH SCH ×6 (04:41→23:23)
[2021-06-21 05:09] LABS: Heparin anti-factor XA UFH 0.35 IU/mL (0.30-0.70)
[2021-06-21] MEDS: Piperacillin/Tazobactam 3.375 GM in 0.9 % Sodium Chloride Mini Bag 100 ML IVPB SCH ×3 (05:09→22:11)
[2021-06-21 05:32] LABS: Platelet Estimate Normal (Normal)
[2021-06-21] MEDS: Pantoprazole 40 MG VIAL IVP SCH (07:32)
[2021-06-21] MEDS: Aspirin 81 MG TAB.CHEW PO SCH (07:33)
[2021-06-21] MEDS: Cholecalciferol (D-3) 1,000 UNIT (25MCG) TABLET PO SCH (07:33)
[2021-06-21] MEDS: Multivit/Ca/Min/Fe/FA 1 TAB TABLET PO SCH (07:33)
[2021-06-21] MEDS: Lactobacillus 1 EACH CAP.SPRINK PO SCH ×2 (07:33→22:11)
[2021-06-21] MEDS: Chlorhexidine Rinse 15 ML MOUTHWASH MM SCH (07:33)
[2021-06-21] MEDS: Albumin 25% 25gram/100mL 25 GM/100 ML IV.SOLN IVPB SCH ×2 (07:56→20:01)
[2021-06-21] MEDS ORDERED: Furosemide 40 MG/4 ML VIAL IVP SCH (09:00)
[2021-06-21] MEDS: Dexmedetomidine HCl 400 MCG/100 ML MLS IVC SCH ×3 (09:10→19:09)
[2021-06-21] MEDS: Norepinephrine 4 MG/254 ML IV.SOLN IVC SCH (13:44)
[2021-06-21] MEDS ORDERED: *HR* Dextrose 50 % in Water (Syg) 50 ML SYRINGE IVP PRN (13:47)
[2021-06-21] MEDS ORDERED: Artificial Tears SOLN 15 ML BOTTLE BOTH EYES PRN (13:47)
[2021-06-21] MEDS ORDERED: Saliva Stimulant 44.3ml BOTTLE PO PRN (13:47)
[2021-06-21] MEDS ORDERED: Dextrose Gel 15 GM/37.5 ML TUBE PO PRN ×2 (13:47)
[2021-06-21] MEDS ORDERED: Naloxone 0.4 MG/ML INJ IVP PRN (13:47)
[2021-06-21] MEDS ORDERED: *HR* Heparin 5,000 UNIT/ML VIAL IVP PRN ×2 (13:47)
[2021-06-21] MEDS ORDERED: D5% in Water 1,000 ML IVC PRN (13:47)
[2021-06-21] MEDS ORDERED: Piperacillin/Tazobactam 3.375 GM in 0.9 % Sodium Chloride Mini Bag 100 ML IVPB SCH (18:00)
[2021-06-21] MEDS: Furosemide 40 MG/4 ML VIAL IVP SCH (22:11)
[2021-06-22] MEDS: Dexmedetomidine HCl 400 MCG/100 ML MLS IVC SCH ×2 (00:42→11:56)
[2021-06-22] MEDS: Piperacillin/Tazobactam 3.375 GM in 0.9 % Sodium Chloride Mini Bag 100 ML IVPB SCH ×3 (04:58→21:02)
[2021-06-22] MEDS: Ipratropium 1 PUFF INHALER IH SCH ×5 (04:59→19:47)
[2021-06-22 05:16] LABS: Basophils # 0.1 K/mcL (0.0-0.2); Basophils % 0.4 %; Hematocrit 33.9 % (37.5-50.1); Immature Granulocytes % 3.2 % (0-4); Lymphocytes # 0.3 K/mcL (0.6-4.6); Lymphocytes % 2.3 %; Mean Corpuscular HGB Conc 30.1 g/dL (31.6-35.5); Mean Corpuscular Hemoglobin 23.6 pg (28.0-33.3); Mean Corpuscular Volume 78.5 fL (83.0-100.0); Mean Platelet Volume 11.8 fL (9.4-12.4); Monocytes # 0.7 K/mcL (0.0-1.3); Monocytes % 4.3 %; Neutrophils # 13.5 K/mcL (1.6-8.9); Nucleated Red Blood Cells 1.3 /100 WBC (0); Platelet Count 191 K/mcL (140-400); Red Blood Count 4.32 M/mcL (4.19-5.50); Red Cell Distribution Width 18.6 % (11.5-14.5); Segmented Neutrophils % 89.8 %
[2021-06-22 05:20] LABS: Hemoglobin 10.2 g/dL (12.9-16.9)
[2021-06-22 05:26] LABS: Albumin 3.6 g/dL (3.5-5.7); Albumin/Globulin Ratio 1.5 (1.1-2.2); Bilirubin,Direct 1.3 mg/dL (0.0-0.2); Bilirubin,Total 2.3 mg/dL (0.3-1.0); Calcium 9.6 mg/dL (8.6-10.3); Globulin 2.4 g/dL (2.4-3.5); Magnesium 2.3 mg/dL (1.6-2.6); Phosphorous 3.7 mg/dL (2.7-4.5); Potassium 3.9 mEq/L (3.5-5.1)
[2021-06-22 05:44] LABS: Heparin anti-factor XA UFH 0.5 IU/mL (0.30-0.70)
[2021-06-22] MEDS: Multivit/Ca/Min/Fe/FA 1 TAB TABLET PO SCH (08:11)
[2021-06-22] MEDS: Lactobacillus 1 EACH CAP.SPRINK PO SCH ×2 (08:11→21:07)
[2021-06-22] MEDS: Aspirin 81 MG TAB.CHEW PO SCH (08:11)
[2021-06-22] MEDS: Cholecalciferol (D-3) 1,000 UNIT (25MCG) TABLET PO SCH (08:11)
[2021-06-22] MEDS ORDERED: Haloperidol Lactate 5 MG/ML VIAL IVP STA (08:26)
[2021-06-22] MEDS: Furosemide 40 MG/4 ML VIAL IVP SCH ×3 (08:34→20:54)
[2021-06-22] MEDS: Albumin 25% 25gram/100mL 25 GM/100 ML IV.SOLN IVPB SCH ×2 (08:38→20:54)
[2021-06-22] MEDS ORDERED: Pantoprazole 40 MG VIAL IVP SCH (09:00)
[2021-06-22] MEDS: Heparin 25,000UNIT/250ML 1/2NS 25,000 UNIT/250 ML IV.SOLN IVC SCH (16:43)
[2021-06-22 22:51] LABS: Hemoglobin 9.7 g/dL (12.9-16.9)
[2021-06-23] MEDS: Ipratropium 1 PUFF INHALER IH SCH ×7 (00:02→23:33)
[2021-06-23 01:00] LABS: VBG Ionized Calcium 1.13 mmol/L (1.15-1.35)
[2021-06-23 01:04] LABS: Basophils # 0.1 K/mcL (0.0-0.2); Basophils % 0.3 %; Hematocrit 32.6 % (37.5-50.1); Hemoglobin 9.7 g/dL (12.9-16.9); Immature Granulocytes % 3.7 % (0-4); Lymphocytes # 0.3 K/mcL (0.6-4.6); Lymphocytes % 1.8 %; Mean Corpuscular HGB Conc 29.8 g/dL (31.6-35.5); Mean Corpuscular Hemoglobin 23.4 pg (28.0-33.3); Mean Corpuscular Volume 78.7 fL (83.0-100.0); Mean Platelet Volume 11.7 fL (9.4-12.4); Monocytes # 0.5 K/mcL (0.0-1.3); Monocytes % 3.1 %; Nucleated Red Blood Cells 1.3 /100 WBC (0); Platelet Count 180 K/mcL (140-400); Red Blood Count 4.14 M/mcL (4.19-5.50); Red Cell Distribution Width 18.7 % (11.5-14.5); Segmented Neutrophils % 91.1 %; White Blood Count 17.6 K/mcL (4.3-11.1)
[2021-06-23 01:22] LABS: Vancomycin,Trough 9 mcg/mL (5-10)
[2021-06-23 01:23] LABS: Albumin 3.9 g/dL (3.5-5.7); Albumin/Globulin Ratio 1.6 (1.1-2.2); Bilirubin,Direct 1.5 mg/dL (0.0-0.2); Bilirubin,Indirect 1.3 mg/dL (0.0-1.0); Bilirubin,Total 2.8 mg/dL (0.3-1.0); Calcium 9.2 mg/dL (8.6-10.3); Globulin 2.4 g/dL (2.4-3.5); Magnesium 2.3 mg/dL (1.6-2.6); Potassium 3.8 mEq/L (3.5-5.1); Total Protein 6.3 g/dL (6.4-8.9)
[2021-06-23] MEDS: Dexmedetomidine HCl 400 MCG/100 ML MLS IVC SCH ×3 (03:34→22:08)
[2021-06-23] MEDS: Pantoprazole 40 MG VIAL IVP SCH ×2 (05:42→18:14)
[2021-06-23] MEDS: Piperacillin/Tazobactam 3.375 GM in 0.9 % Sodium Chloride Mini Bag 100 ML IVPB SCH ×3 (05:42→21:29)
[2021-06-23 05:53] LABS: Hematocrit 31.7 % (37.5-50.1); Hemoglobin 9.8 g/dL (12.9-16.9)
[2021-06-23] MEDS: Albumin 25% 25gram/100mL 25 GM/100 ML IV.SOLN IVPB SCH ×2 (08:38→18:30)
[2021-06-23] MEDS: Aspirin 81 MG TAB.CHEW PO SCH (08:40)
[2021-06-23] MEDS: Multivit/Ca/Min/Fe/FA 1 TAB TABLET PO SCH (08:40)
[2021-06-23] MEDS: Lactobacillus 1 EACH CAP.SPRINK PO SCH ×2 (08:40→21:29)
[2021-06-23] MEDS: Cholecalciferol (D-3) 1,000 UNIT (25MCG) TABLET PO SCH (08:41)
[2021-06-23] MEDS: Furosemide 40 MG/4 ML VIAL IVP SCH ×2 (10:22→21:28)
[2021-06-23] MEDS ORDERED: Lidocaine -MPF 1% 5 ML AMPUL INFILT ONE (10:24)
[2021-06-23 14:57] LABS: Hematocrit 31.3 % (37.5-50.1); Hemoglobin 9.7 g/dL (12.9-16.9)
[2021-06-23 16:28] LABS: Creatine Kinase 87 Units/L (30-223)
[2021-06-23] MEDS: Heparin 25,000UNIT/250ML 1/2NS 25,000 UNIT/250 ML IV.SOLN IVC SCH (17:05)
[2021-06-23] MEDS: DAPTOmycin 500 MG in 0.9 % Sodium Chloride 100 ML IVPB SCH (17:37)
[2021-06-23 21:28] LABS: Hematocrit 30.6 % (37.5-50.1); Hemoglobin 9.5 g/dL (12.9-16.9)
[2021-06-24] MEDS: Dexmedetomidine HCl 400 MCG/100 ML MLS IVC SCH ×4 (03:34→21:55)
[2021-06-24] MEDS: Ipratropium 1 PUFF INHALER IH SCH ×6 (03:47→23:50)
[2021-06-24 04:54] LABS: Albumin 4.1 g/dL (3.5-5.7); Albumin/Globulin Ratio 1.6 (1.1-2.2); Bilirubin,Direct 1.3 mg/dL (0.0-0.2); Bilirubin,Indirect 1.3 mg/dL (0.0-1.0); Bilirubin,Total 2.6 mg/dL (0.3-1.0); Calcium 9.4 mg/dL (8.6-10.3); Globulin 2.5 g/dL (2.4-3.5); Magnesium 2.4 mg/dL (1.6-2.6); Phosphorous 3.9 mg/dL (2.7-4.5); Potassium 3.9 mEq/L (3.5-5.1); Total Protein 6.6 g/dL (6.4-8.9)
[2021-06-24 05:04] LABS: VBG Ionized Calcium 1.14 mmol/L (1.15-1.35)
[2021-06-24 05:15] LABS: Basophils # 0.1 K/mcL (0.0-0.2); Basophils % 0.4 %; Hematocrit 30.6 % (37.5-50.1); Hemoglobin 9.4 g/dL (12.9-16.9); Immature Granulocytes % 3.5 % (0-4); Lymphocytes # 0.4 K/mcL (0.6-4.6); Lymphocytes % 1.9 %; Mean Corpuscular HGB Conc 30.7 g/dL (31.6-35.5); Mean Corpuscular Hemoglobin 23.9 pg (28.0-33.3); Mean Corpuscular Volume 77.7 fL (83.0-100.0); Mean Platelet Volume 12.4 fL (9.4-12.4); Monocytes % 4.6 %; Nucleated Red Blood Cells 1.2 /100 WBC (0); Platelet Count 178 K/mcL (140-400); Red Blood Count 3.94 M/mcL (4.19-5.50); Red Cell Distribution Width 18.7 % (11.5-14.5); Segmented Neutrophils % 89.6 %; White Blood Count 22.3 K/mcL (4.3-11.1)
[2021-06-24] MEDS: Nitroglycerin 0.4 MG TAB.SUBL SL PRN ×2 (05:55→06:09)
[2021-06-24 07:14] LABS: Troponin I 0.07 ng/mL (< 0.04)
[2021-06-24] MEDS: Albumin 25% 25gram/100mL 25 GM/100 ML IV.SOLN IVPB SCH ×2 (07:52→18:43)
[2021-06-24] MEDS: Pantoprazole 40 MG VIAL IVP SCH ×2 (07:53→17:26)
[2021-06-24] MEDS: Cholecalciferol (D-3) 1,000 UNIT (25MCG) TABLET PO SCH (07:54)
[2021-06-24] MEDS: Lactobacillus 1 EACH CAP.SPRINK PO SCH (07:54)
[2021-06-24] MEDS: Multivit/Ca/Min/Fe/FA 1 TAB TABLET PO SCH (07:54)
[2021-06-24] MEDS: Aspirin 81 MG TAB.CHEW PO SCH (07:54)
[2021-06-24] MEDS: Furosemide 40 MG/4 ML VIAL IVP SCH ×2 (09:57→20:16)
[2021-06-24] MEDS: Heparin 25,000UNIT/250ML 1/2NS 25,000 UNIT/250 ML IV.SOLN IVC SCH (14:44)
[2021-06-24] MEDS: DAPTOmycin 500 MG in 0.9 % Sodium Chloride 100 ML IVPB SCH (15:06)
[2021-06-25] MEDS: Dexmedetomidine HCl 400 MCG/100 ML MLS IVC SCH ×2 (02:40→08:17)
[2021-06-25 03:10] LABS: Bilirubin,Direct 1.1 mg/dL (0.0-0.2); Bilirubin,Indirect 1.2 mg/dL (0.0-1.0); Bilirubin,Total 2.3 mg/dL (0.3-1.0); Calcium 9.2 mg/dL (8.6-10.3); Magnesium 2.3 mg/dL (1.6-2.6); Phosphorous 3.8 mg/dL (2.7-4.5); Potassium 4.1 mEq/L (3.5-5.1); Total Protein 6.5 g/dL (6.4-8.9)
[2021-06-25 03:55] LABS: Albumin 4.1 g/dL (3.5-5.7); Albumin/Globulin Ratio 1.7 (1.1-2.2); Globulin 2.4 g/dL (2.4-3.5)
[2021-06-25 04:07] LABS: Basophils % 0.3 %; Lymphocytes % 1.9 %; Mean Platelet Volume 12.1 fL (9.4-12.4)
[2021-06-25 04:08] LABS: Basophils # 0.1 K/mcL (0.0-0.2); Hematocrit 28.3 % (37.5-50.1); Hemoglobin 8.4 g/dL (12.9-16.9); Immature Granulocytes % 4.3 % (0-4); Immature Platelets 15.6 % (1.1-6.1); Lymphocytes # 0.4 K/mcL (0.6-4.6); Mean Corpuscular HGB Conc 29.7 g/dL (31.6-35.5); Mean Corpuscular Hemoglobin 23.6 pg (28.0-33.3); Mean Corpuscular Volume 79.5 fL (83.0-100.0); Monocytes # 1.3 K/mcL (0.0-1.3); Monocytes % 5.5 %; Nucleated Red Blood Cells 0.6 /100 WBC (0); Platelet Count 159 K/mcL (140-400); Red Blood Count 3.56 M/mcL (4.19-5.50); Red Cell Distribution Width 19.3 % (11.5-14.5); White Blood Count 23.1 K/mcL (4.3-11.1)
[2021-06-25 04:09] LABS: Neutrophils # 20.3 K/mcL (1.6-8.9)
[2021-06-25] MEDS: Ipratropium 1 PUFF INHALER IH SCH ×5 (04:19→20:48)
[2021-06-25] MEDS: Pantoprazole 40 MG VIAL IVP SCH ×2 (05:47→17:35)
[2021-06-25] MEDS: Albumin 25% 25gram/100mL 25 GM/100 ML IV.SOLN IVPB SCH ×2 (05:47→20:00)
[2021-06-25] MEDS: Lactobacillus 1 EACH CAP.SPRINK PO SCH ×3 (05:49→20:01)
[2021-06-25] MEDS: Cholecalciferol (D-3) 1,000 UNIT (25MCG) TABLET PO SCH (08:18)
[2021-06-25] MEDS: Furosemide 40 MG/4 ML VIAL IVP SCH ×2 (08:18→22:32)
[2021-06-25] MEDS: Multivit/Ca/Min/Fe/FA 1 TAB TABLET PO SCH (08:18)
[2021-06-25] MEDS ORDERED: *HR* LORazepam 2 MG/ML VIAL IVP ONE (10:08)
[2021-06-25] MEDS: Aspirin 81 MG TAB.CHEW PO SCH (10:46)
[2021-06-25] MEDS: DAPTOmycin 500 MG in 0.9 % Sodium Chloride 100 ML IVPB SCH (15:23)
[2021-06-25] MEDS ORDERED: Lidocaine -MPF 1% 5 ML AMPUL INFILT ONE (15:35)
[2021-06-25] MEDS: Insulin LISPRO 300 UNITS/3 ML VIAL SUBQ SCH (17:35)
[2021-06-25] MEDS ORDERED: Melatonin 3 MG TABLET PO PRN (20:01)
[2021-06-25] MEDS: Insulin DETEMIR 100 UNIT/ML X5UNITS SUBQ SCH (22:33)
[2021-06-26] MEDS: Ipratropium 1 PUFF INHALER IH SCH ×7 (00:36→23:38)
[2021-06-26] MEDS ORDERED: *HR* LORazepam 2 MG/ML VIAL IVP ONE (05:16)
[2021-06-26] MEDS: Pantoprazole 40 MG VIAL IVP SCH ×2 (05:35→17:49)
[2021-06-26] MEDS: Albumin 25% 25gram/100mL 25 GM/100 ML IV.SOLN IVPB SCH ×2 (10:09→23:25)
[2021-06-26] MEDS: Furosemide 40 MG/4 ML VIAL IVP SCH ×2 (10:12→23:25)
[2021-06-26] MEDS: Aspirin 81 MG TAB.CHEW PO SCH (10:13)
[2021-06-26] MEDS: Cholecalciferol (D-3) 1,000 UNIT (25MCG) TABLET PO SCH (10:13)
[2021-06-26] MEDS: Insulin LISPRO 300 UNITS/3 ML VIAL SUBQ SCH ×3 (10:13→17:36)
[2021-06-26] MEDS: Multivit/Ca/Min/Fe/FA 1 TAB TABLET PO SCH (10:13)
[2021-06-26] MEDS: Lactobacillus 1 EACH CAP.SPRINK PO SCH ×2 (10:13→20:21)
[2021-06-26 10:34] LABS: Hemoglobin 7.6 g/dL (12.9-16.9)
[2021-06-26 10:36] LABS: VBG Ionized Calcium 1.11 mmol/L (1.15-1.35)
[2021-06-26 10:36] LABS: Hematocrit 25.1 % (37.5-50.1); Mean Corpuscular HGB Conc 30.3 g/dL (31.6-35.5); Mean Corpuscular Hemoglobin 24.3 pg (28.0-33.3); Mean Corpuscular Volume 80.2 fL (83.0-100.0); Mean Platelet Volume 12.7 fL (9.4-12.4); Nucleated Red Blood Cells 0.6 /100 WBC (0); Platelet Count 219 K/mcL (140-400); Red Blood Count 3.13 M/mcL (4.19-5.50); Red Cell Distribution Width 19.8 % (11.5-14.5); White Blood Count 29.4 K/mcL (4.3-11.1)
[2021-06-26 10:55] LABS: Albumin 4.4 g/dL (3.5-5.7); Albumin/Globulin Ratio 1.9 (1.1-2.2); Bilirubin,Direct 1.2 mg/dL (0.0-0.2); Bilirubin,Indirect 1.3 mg/dL (0.0-1.0); Bilirubin,Total 2.5 mg/dL (0.3-1.0); Calcium 9.7 mg/dL (8.6-10.3); Globulin 2.3 g/dL (2.4-3.5); Magnesium 2.3 mg/dL (1.6-2.6); Phosphorous 2.4 mg/dL (2.7-4.5); Potassium 3.8 mEq/L (3.5-5.1); Total Protein 6.7 g/dL (6.4-8.9)
[2021-06-26 11:34] LABS: Lymphocytes # 1.5 K/mcL (0.6-4.6); Monocytes # 1.2 K/mcL (0.0-1.3); Neutrophils # 26.5 K/mcL (1.6-8.9)
[2021-06-26 11:35] LABS: Anisocytosis 1+ (Not Present); Hypochromasia Present (Not Present); Platelet Estimate Normal (Normal)
[2021-06-26] MEDS ORDERED: traZODone 50 MG TABLET PO PRN (15:17)
[2021-06-26] MEDS: DAPTOmycin 500 MG in 0.9 % Sodium Chloride 100 ML IVPB SCH (17:46)
[2021-06-26] MEDS ORDERED: 0.9 % Sodium Chloride 250 ML ONE (19:45)
[2021-06-26] MEDS: Insulin DETEMIR 100 UNIT/ML X5UNITS SUBQ SCH (20:26)
[2021-06-26] MEDS ORDERED: QUEtiapine Fumarate 25 MG TABLET PO SCH (21:00)
[2021-06-26] MEDS ORDERED: Melatonin 3 MG TABLET PO SCH (21:00)
[2021-06-27 02:30] VITALS: O2SAT 94
[2021-06-27 03:01] LABS: Albumin 4.1 g/dL (3.5-5.7); Bilirubin,Total 2.8 mg/dL (0.3-1.0); Calcium 9.5 mg/dL (8.6-10.3); Globulin 2.1 g/dL (2.4-3.5); Potassium 3.6 mEq/L (3.5-5.1); Total Protein 6.2 g/dL (6.4-8.9)
[2021-06-27 03:02] LABS: Basophils # 0.1 K/mcL (0.0-0.2); Basophils % 0.3 %; Eosinophils # 0.1 K/mcL (0.0-0.6); Eosinophils % 0.2 %; Hematocrit 26.4 % (37.5-50.1); Hemoglobin 8.2 g/dL (12.9-16.9); Immature Granulocytes % 3.3 % (0-4); Lymphocytes % 3.9 %; Mean Corpuscular HGB Conc 31.1 g/dL (31.6-35.5); Mean Corpuscular Hemoglobin 25.5 pg (28.0-33.3); Mean Corpuscular Volume 82.2 fL (83.0-100.0); Mean Platelet Volume 12.1 fL (9.4-12.4); Monocytes # 1.2 K/mcL (0.0-1.3); Monocytes % 4.7 %; Neutrophils # 21.6 K/mcL (1.6-8.9); Nucleated Red Blood Cells 0.4 /100 WBC (0); Platelet Count 175 K/mcL (140-400); Red Blood Count 3.21 M/mcL (4.19-5.50); Red Cell Distribution Width 20.2 % (11.5-14.5); Segmented Neutrophils % 87.6 %; White Blood Count 24.7 K/mcL (4.3-11.1)
[2021-06-27] MEDS: Ipratropium 1 PUFF INHALER IH SCH ×2 (03:58→08:11)
[2021-06-27 04:04] LABS: Platelet Estimate Normal (Normal)
[2021-06-27] MEDS: Pantoprazole 40 MG VIAL IVP SCH (06:50)
[2021-06-27 07:44] VITALS: BP 117/70; TEMP 97.9
[2021-06-27] MEDS: Lactobacillus 1 EACH CAP.SPRINK PO SCH (07:45)
[2021-06-27] MEDS: Multivit/Ca/Min/Fe/FA 1 TAB TABLET PO SCH (07:45)
[2021-06-27] MEDS: Cholecalciferol (D-3) 1,000 UNIT (25MCG) TABLET PO SCH (07:45)
[2021-06-27] MEDS: Aspirin 81 MG TAB.CHEW PO SCH (07:45)
[2021-06-27] MEDS: Insulin LISPRO 300 UNITS/3 ML VIAL SUBQ SCH (07:46)
[2021-06-27] MEDS: Albumin 25% 25gram/100mL 25 GM/100 ML IV.SOLN IVPB SCH (07:46)
[2021-06-27 07:55] VITALS: PULSE 113
[2021-06-27] MEDS: Furosemide 40 MG/4 ML VIAL IVP SCH (09:43)
== END 2021-06-27 11:41 | disposition left against medical advice (07) | DRG 720 ==
LOC: 2NNU → SUATTDRO 05:31 → OBSVTOIN 05:31 → ICNU 06-15 15:41 → 2NNU 06-21 14:15 → 3BNU 06-26 23:54
PROVIDERS: ADMIT Internal Medicine; ATTEND Internal Medicine